=== PATIENT | female | born 1960 | race Caucasian/White ===

== ENCOUNTER → 2016-06-05 | Outpatient (CLI) | payer OTHER ==
[2016-06-05 13:28] LABS: BLOOD UREA NITROGEN 12 mg/dl (7-18); BUN/CREATININE RATIO 25.1 (10-20); CARBON DIOXIDE 29 mmol/L (21-32); CHLORIDE 103 mmol/L (98-107); CREATININE 0.49 mg/dl (0.60-1.20); GLUCOSE 100 mg/dl (70-99); POTASSIUM 3.7 mmol/L (3.5-5.1); SODIUM 140 mmol/L (136-145)
[2016-06-05 13:29] LABS: CALCIUM 9.6 mg/dl (8.5-10.1)
[2016-06-05 13:36] LABS: ESTIMATED AVERAGE GLUCOSE 114 mg/dl; HA1C FLAG Normal (Normal)
[2016-06-05 14:06] LABS: RATIO 38.8 mcg/mg (0-30.0)
== END | disposition home or self-care (01) ==
LOC: C.LABMFLN 09:33
PROVIDERS: ATTEND Family Medicine
DX: I10 Essential (primary) hypertension (principal); E55.9 Vitamin D deficiency, unspecified; E11.9 Type 2 diabetes mellitus without complications; E78.5 Hyperlipidemia, unspecified

== ENCOUNTER → 2016-09-18 | Outpatient (CLI) | payer OTHER ==
[2016-09-18 13:29] LABS: ESTIMATED AVERAGE GLUCOSE 111 mg/dl; HA1C FLAG Normal (Normal)
[2016-09-18 13:30] LABS: CREATININE RANDOM URINE < 13.0 mg/dl
[2016-09-18 13:44] LABS: ALT/SGPT 31 U/L (12-78); AST/SGOT 19 U/L (15-37); BLOOD UREA NITROGEN 16 mg/dl (7-18); BUN/CREATININE RATIO 31.6 (10-20); CALCIUM 9.1 mg/dl (8.5-10.1); CARBON DIOXIDE 27 mmol/L (21-32); CHLORIDE 104 mmol/L (98-107); CHOLESTEROL 151 mg/dl (0-200); GLUCOSE 92 mg/dl (70-99); POTASSIUM 3.7 mmol/L (3.5-5.1); SODIUM 136 mmol/L (136-145)
[2016-09-18 13:49] LABS: ALB/GLOB RATIO 1.1 (0.9-2); ALKALINE PHOSPHATASE 68 U/L (45-117); CHOLESTEROL/HDL RATIO 2.2; HDL CHOLESTEROL 69 mg/dl; LDL CHOLESTEROL CALCULATED 57 mg/dl; TRIGLYCERIDES 123 mg/dl (0-150); VERY LOW DENSITY LIPOPROT CALC 25 mg/dl
== END | disposition home or self-care (01) ==
LOC: C.LABMFLN 08:12
PROVIDERS: ATTEND Family Medicine
DX: E55.9 Vitamin D deficiency, unspecified (principal); R80.9 Proteinuria, unspecified; I10 Essential (primary) hypertension; E11.9 Type 2 diabetes mellitus without complications; E78.5 Hyperlipidemia, unspecified

== ENCOUNTER 2022-05-27 11:22 | Observation (INO) ==
--- NOTE | 2022-05-04 11:48 | PAT Medication Instructions ---
Medication Instructions Date of Service May 04, 2022 Home Medications Medication Instructions Recorded triamcinolone acetonide 0.1 % 1 applic topical BID PRN 11/22/20 topical cream dermatitis #80 grams potassium chloride 20 mEq 20 meq PO TID #270 tabs 03/28/21 tablet,extended release ketoconazole 2 % shampoo 1 applic topical .COMPLEX PRN 09/02/21 scalp irritation #120 mL ondansetron HCl 8 mg tablet 8 mg PO Q8H PRN nausea and 10/17/21 vomiting #20 tabs tizanidine 4 mg capsule 4 mg PO .QHS PRN muscle spasticity 10/17/21 #20 caps cholecalciferol (vitamin D3) 1,250 50,000 unit PO WEEKLY #14 caps 03/26/22 mcg (50,000 unit) capsule amlodipine 2.5 mg tablet 2.5 mg PO QAM #30 tabs 04/16/22 Medication List: coenzyme Q10 100 mg capsule 100 mg PO QPM cyanocobalamin (vitamin B-12) 1,500 mcg tablet,extended release 1,500 mcg PO QAM loratadine 10 mg tablet 10 mg PO QPM magnesium 250 mg tablet 250 mg PO BID nystatin 100,000 unit/gram topical cream 1 appln topical BID PRN Rash omega-3 acid ethyl esters 1 gram capsule 1 cap PO QAM vitamin B complex (Super B-50 Complex capsule) 1 cap PO QAM biotin 10 mg tablet 10 mg PO QAM glucosamine-chondroitin 250 mg-200 mg tablet (Osteo Bi-Flex) 1 tab PO QAM turmeric 400 mg capsule 400 mg PO BID triamcinolone acetonide 0.1 % topical cream 1 applic topical BID PRN dermatitis potassium chloride 20 mEq tablet,extended release 20 meq PO TID ketoconazole 2 % shampoo 1 applic topical .COMPLEX PRN scalp irritation ondansetron HCl 8 mg tablet 8 mg PO Q8H PRN nausea and vomiting tizanidine 4 mg capsule 4 mg PO .QHS PRN muscle spasticity cholecalciferol (vitamin D3) 1,250 mcg (50,000 unit) capsule 50,000 unit PO WEEKLY amlodipine 2.5 mg tablet 2.5 mg PO QAM ascorbic acid (vitamin C) 500 mg chewable tablet (Vitamin C) 500 mg PO QAM atenolol 50 mg-chlorthalidone 25 mg tablet 1 tab PO QPM cholecalciferol (vitamin D3) 50 mcg (2,000 unit) capsule 2,000 unit PO QAM duloxetine 30 mg capsule,delayed release 30 mg PO QPM losartan 100 mg tablet 100 mg PO QAM Continue as directed cholecalciferol (vitamin D3) 1,250 mcg (50,000 unit) capsule 50,000 unit PO WEEKLY (may not take AM of surgery) nystatin 100,000 unit/gram topical cream 1 appln topical BID PRN Rash (do not use AM of surgery) triamcinolone acetonide 0.1 % topical cream 1 applic topical BID PRN dermatitis (do not use AM of surgery) ketoconazole 2 % shampoo 1 applic topical .COMPLEX PRN scalp irritation (do not use AM of surgery) STOP taking 2 weeks before surgery biotin 10 mg tablet 10 mg PO QAM glucosamine-chondroitin 250 mg-200 mg tablet (Osteo Bi-Flex) 1 tab PO QAM turmeric 400 mg capsule 400 mg PO BID omega-3 acid ethyl esters 1 gram capsule 1 cap PO QAM coenzyme Q10 100 mg capsule 100 mg PO QPM DO NOT take the morning of surgery losartan 100 mg tablet 100 mg PO QAM cyanocobalamin (vitamin B-12) 1,500 mcg tablet,extended release 1,500 mcg PO QAM vitamin B complex (Super B-50 Complex capsule) 1 cap PO QAM cholecalciferol (vitamin D3) 50 mcg (2,000 unit) capsule 2,000 unit PO QAM ascorbic acid (vitamin C) 500 mg chewable tablet (Vitamin C) 500 mg PO QAM potassium chloride 20 mEq tablet,extended release 20 meq PO TID magnesium 250 mg tablet 250 mg PO BID Take morning of surgery With a small sip of water, OTHERWISE NOTHING TO EAT OR DRINK AFTER MIDNIGHT: amlodipine 2.5 mg tablet 2.5 mg PO QAM ondansetron HCl 8 mg tablet 8 mg PO Q8H PRN nausea and vomiting (if needed) Take evening before surgery loratadine 10 mg tablet 10 mg PO QPM atenolol 50 mg-chlorthalidone 25 mg tablet 1 tab PO QPM duloxetine 30 mg capsule,delayed release 30 mg PO QPM potassium chloride 20 mEq tablet,extended release 20 meq PO TID magnesium 250 mg tablet 250 mg PO BID tizanidine 4 mg capsule 4 mg PO .QHS PRN muscle spasticity (if needed) ondansetron HCl 8 mg tablet 8 mg PO Q8H PRN nausea and vomiting (if needed) Other Notes If you have any questions please call us at [phone] or [phone] or [phone] or [phone]
--- NOTE | 2022-05-07 10:28 | Anesthesiology Consultation ---
Date of Service May 07, 2022 Assessment & Plan (1) Encounter for pre-operative examination: - COVID screening: Per assessment on 05/07: No known COVID-19 positive contacts or current COVID-19 related symptoms. Travel screen negative. Patient vaccinated. At surgeon discretion if preop Covid testing being done. - Check BSG AM DOS - Outpatient joint assessment: Pt currently scheduled for inpatient pathway. If surgeon requests review for outpatient joint pathway, patient is not recommended candidate for outpatient joint program from anesthesia standpoint. Chart Review Chart Review: Acceptable Risk for Surgery and Patient NOT seen in Pre Admission Testing History Surgery Operation Date: 05/27/22 07:15 Proposed Procedures p Right Total Knee Arthroplasty - Tariq Eli MD Height/Weight Height: 5 ft 4 in Weight: 95.3 kg Allergies Allergy/AdvReac Type Severity Reaction Status Date / Time celecoxib [From Celebrex] Allergy Severe shortness Verified 05/04/22 10:50 of breath, edema diclofenac Allergy Severe shortness Verified 05/04/22 10:50 of breath; edema aspirin Allergy Intermediate "if I take Verified 05/04/22 10:50 too much aspirin my nose will bleed" butalbital [From Fiorinal] Allergy Intermediate Hives Verified 05/04/22 10:50 latex Allergy Intermediate dermatitis Verified 05/04/22 10:50 with latex gloves meloxicam Allergy Intermediate Tachycardia Verified 05/04/22 10:50 gabapentin Allergy Mild rash and Verified 05/04/22 10:50 brain fog sulfamethoxazole Allergy Unknown Unknown Verified 05/04/22 10:50 [From Bactrim] trimethoprim [From Bactrim] Allergy Unknown Unknown Verified 05/04/22 10:50 venlafaxine [From Effexor] Allergy Unknown Unknown Verified 05/04/22 10:50 fexofenadine [From Margarita] AdvReac Intermediate "made me Verified 05/04/22 10:50 real tired" Medications Home Medications Medication Instructions Recorded Confirmed Last Taken blood sugar diagnostic (OneTouch #10 ea 07/26/18 04/30/22 Unknown Ultra Blue Test Strip) coenzyme Q10 100 mg capsule 100 mg PO QPM 07/26/18 05/04/22 Unknown cyanocobalamin (vitamin B-12) 1,500 mcg PO QAM #30 tabs 07/26/18 05/04/22 Unknown 1,500 mcg tablet,extended release lancets (OneTouch UltraSoft #50 ea 07/26/18 04/30/22 Unknown Lancets) loratadine 10 mg tablet 10 mg PO QPM 07/26/18 05/04/22 Unknown magnesium 250 mg tablet 250 mg PO BID 07/26/18 05/04/22 Unknown nystatin 100,000 unit/gram topical 1 appln topical BID PRN Rash #1 g 07/26/18 05/04/22 Unknown cream omega-3 acid ethyl esters 1 gram 1 cap PO QAM 07/26/18 05/04/22 Unknown capsule vitamin B complex (Super B-50 1 cap PO QAM 07/26/18 05/04/22 Unknown Complex capsule) biotin 10 mg tablet 10 mg PO QAM 12/18/18 05/04/22 Unknown glucosamine-chondroitin 250 mg-200 1 tab PO QAM 04/22/20 05/04/22 Unknown mg tablet (Osteo Bi-Flex) turmeric 400 mg capsule 400 mg PO BID 04/22/20 05/04/22 Unknown triamcinolone acetonide 0.1 % 1 applic topical BID PRN 11/22/20 05/04/22 Unknown topical cream dermatitis #80 grams potassium chloride 20 mEq 20 meq PO TID #270 tabs 03/28/21 05/04/22 Unknown tablet,extended release ketoconazole 2 % shampoo 1 applic topical .COMPLEX PRN 09/02/21 05/04/22 Unknown scalp irritation #120 mL ondansetron HCl 8 mg tablet 8 mg PO Q8H PRN nausea and 10/17/21 05/04/22 Unknown vomiting #20 tabs tizanidine 4 mg capsule 4 mg PO .QHS PRN muscle spasticity 10/17/21 05/04/22 Unknown #20 caps cholecalciferol (vitamin D3) 1,250 50,000 unit PO WEEKLY #14 caps 03/26/22 05/04/22 Unknown mcg (50,000 unit) capsule amlodipine 2.5 mg tablet 2.5 mg PO QAM #30 tabs 04/16/22 05/04/22 Unknown ascorbic acid (vitamin C) 500 mg 500 mg PO QAM 05/04/22 05/04/22 Unknown chewable tablet (Vitamin C) atenolol 50 mg-chlorthalidone 25 1 tab PO QPM 05/04/22 05/04/22 Unknown mg tablet cholecalciferol (vitamin D3) 50 2,000 unit PO QAM 05/04/22 05/04/22 Unknown mcg (2,000 unit) capsule duloxetine 30 mg capsule,delayed 30 mg PO QPM 05/04/22 05/04/22 Unknown release losartan 100 mg tablet 100 mg PO QAM 05/04/22 05/04/22 Unknown Past Medical History Medical History Adjustment reaction Benign essential hypertension Cardiac murmur "No murmur" per PCP preop evaluation appt 04/30/22 ([facility]) Chronic anemia Chronic kidney disease Controlled diabetes mellitus with chronic kidney disease diet controlled Depression Fatty liver Hyperlipidemia Increased intraocular pressure Macromastia Moderate obstructive sleep apnea Previous CPAP use, no issues/no device since gastric bypass, no formal retest Obesity Osteoarthritis Exercise / Class Metabolic Activity II 4-5 Yardwork/Stairs/Walk up hill (one FS (no CP, no SOB)) Past Family History Family History Mother Coronary heart disease Dyslipidemia Renal cancer Thyroid disorder Family history of reaction to anesthesia nausea/vomiting Father Diabetes AAA (abdominal aortic aneurysm) Dyslipidemia Heart disease Myocardial infarction Lung cancer Aunt Breast cancer Denies family history of Ovarian cancer Prostate cancer Colorectal cancer Past Surgical History Surgical History H/O gastric bypass H/O wrist surgery bilateral carpal tunnel repair H/O: hysterectomy History of appendectomy History of breast biopsy right breast--benign History of colonoscopy History of laparoscopy excision gynecologic lesions History of left hip replacement Dr. Hoffman 12/12/21 History of tooth extraction S/P thyroid biopsy benign nodule S/P ureteral stent placement 07/01/20 - Dr. Celestina WILSON Status post laser lithotripsy of ureteral calculus 07/01/20 - Dr. Celestina ESQUIVEL Past Anesthesia History No Hx of Anesthesia Complications and No Family Hx of Anesthesia Complications (except mother with PONV) History of PONV No Hx of PONV and No Hx of Motion Sickness Social History Smoking Status: Former smoker Do You Dip or Chew Tobacco: No Smoking End Date: Quit 13yrs ago Hx Alcohol Use: Yes alcohol intake frequency: a few times a month Hx Substance Use: No Review of Systems Patient denies chest pain, shortness of breath, dyspnea on exertion, fever, chills, cough, wheezing, palpitations. Physical Exam Vital Signs VITALS BP 134/79 P 87 TEMP 98.1 SP02 97%RA RESP 16 PHYSICAL Full cervical extension range of motion. Full TMJ range of motion. TMD 3 finger breaths Mallampati Score 1 Dentition: full denture on top, several missing lower (molars) Lungs: clear throughout to auscultation Cardiac: regular rate and rhythm, no murmurs noted Spine: normal Carotid arteries: negative bruit Extremities: no edema Lab Results Anesthesia Preop Results Results Anesthesia Widget: WBC 6.42 K/ul (4.8-10.8) 04/16/22 Hgb 13.2 g/dl (12.0-16.0) 04/16/22 Hct 38.9 % (37.0-47.0) 04/16/22 Plt 287 K/uL (130-400) 04/16/22 Na 139 mmol/L (136-145) 04/16/22 K 4.0 mmol/L (3.5-5.1) 04/16/22 Cl 106 mmol/L (98-107) 04/16/22 CO2 25 mmol/L (21-32) 04/16/22 BUN 18 mg/dl (6-23) 04/16/22 Creat 0.52 mg/dl (0.6-1.2) L 04/16/22 Glucose Level 102 mg/dl (70-99(Fasting)) H 04/16/22 PT 10.4 Seconds (9.0-12.0) 05/07/22 PTT 24.5 Seconds (21.0-31.0) 05/07/22 INR 1.0 (0.9-1.1) 05/07/22 HA1c 4.9 % (4.5-5.6) 04/16/22 Urine Color Yellow 05/07/22 Urine Appearance Clear (Clear) 05/07/22 Urine pH 5.5 (4.5-7.5) 05/07/22 Urine Specific [place] 1.023 (1.000-1.030) 05/07/22 Urine Protein Negative (Negative) 05/07/22 Urine Glucose (UA) Negative (Negative) 05/07/22 Urine Ketones Negative (Negative) 05/07/22 Urine Blood Negative (Negative) 05/07/22 Urine Nitrite Negative (Negative) 05/07/22 Urine Bilirubin Negative (Negative) 05/07/22 Urine Urobilinogen Negative (Negative) 05/07/22 Urine Leukocyte Esterase Negative (Negative) 05/07/22 Blood Type A Positive 05/07/22 Antibody Screen NEGATIVE 05/07/22 Testing Electrocardiogram Date: 09/24/21 SR with PACs at 70bpm. NS STA. Chest X-Ray Date: 09/24/21 FINDINGS: Frontal and lateral radiographs of the chest demonstrate the cardiomediastinal silhouette to be within normal limits. The lungs are clear of alveolar opacities. There is no evidence for effusion bilaterally. There is no evidence for vascular congestion. There is no acute osseous pathology. IMPRESSION: No acute cardiopulmonary disease. COVID-19 Risk Screen Screening Information COVID-19 Screen Date: 05/07/22 Exposure 21 Days Family/Household +COVID Last 21 Days: No Exposure 10 Days Any COVID Exposure Last 10 Days: No Symptoms Last 10 Days Experienced COVID Sx Last 10 Days: No + COVID 0-90 Days COVID + in Last 0-90 Days: No
--- NOTE | 2022-05-26 10:19 | History & Physical Report ---
Date of Service May 26, 2022 Assessment & Plan (1) Primary osteoarthritis of right knee: Plan: Treatment options discussed with the patient. She has failed conservative measures. Risks, benefits and alternatives to surgery including but not limited to infection, DVT, pain, stiffness, need for revision surgery, damage to blood vessels, damage to nerves, PE, , were discussed with the patient and they wish to proceed. Plan on right total knee arthroplasty scheduled for [facility] with Dr. Eli on 05/27/22. Plan on home health physical therapy. Plan on aspirin 81mg twice daily for 1 mo post op for DVT prophylaxis. Plan on tramadol post op for pain management. All questions answered. F/u post op. History of Present Illness Chief Complaint: Right knee pain Primary Care Provider: Joseph Marie MD 62yo female with PMHx signficant for HTN, anxiety, DM2 presents with ongoing right knee pain. She has pain interfering with her daily activity. She has failed conservative measures and would like to proceed with surgical intervention. Patient denies headaches, sweats, fevers, chills, double vision, blurred vision, cough, sore throat, dysphagia, chest pain, sob, wheezing, n/v/d/c, numbness, tingling, fatigue, urinary symptoms, mood disorders. ROS positive for right knee pain and stiffness. Allergies Allergy/AdvReac Type Severity Reaction Status Date / Time celecoxib [From Celebrex] Allergy Severe shortness Verified 05/04/22 10:50 of breath, edema diclofenac Allergy Severe shortness Verified 05/04/22 10:50 of breath; edema aspirin Allergy Intermediate "if I take Verified 05/04/22 10:50 too much aspirin my nose will bleed" butalbital [From Fiorinal] Allergy Intermediate Hives Verified 05/04/22 10:50 latex Allergy Intermediate dermatitis Verified 05/04/22 10:50 with latex gloves meloxicam Allergy Intermediate Tachycardia Verified 05/04/22 10:50 gabapentin Allergy Mild rash and Verified 05/04/22 10:50 brain fog sulfamethoxazole Allergy Unknown Unknown Verified 05/04/22 10:50 [From Bactrim] trimethoprim [From Bactrim] Allergy Unknown Unknown Verified 05/04/22 10:50 venlafaxine [From Effexor] Allergy Unknown Unknown Verified 05/04/22 10:50 fexofenadine [From Margarita] AdvReac Intermediate "made me Verified 05/04/22 10:50 real tired" Home Medications Medication Instructions Recorded Confirmed Type blood sugar diagnostic (OneTouch #10 ea 07/26/18 04/30/22 History Ultra Blue Test Strip) coenzyme Q10 100 mg capsule 100 mg PO QPM 07/26/18 05/04/22 History cyanocobalamin (vitamin B-12) 1,500 mcg PO QAM #30 tabs 07/26/18 05/04/22 History 1,500 mcg tablet,extended release lancets (OneTouch UltraSoft #50 ea 07/26/18 04/30/22 History Lancets) loratadine 10 mg tablet 10 mg PO QPM 07/26/18 05/04/22 History magnesium 250 mg tablet 250 mg PO BID 07/26/18 05/04/22 History nystatin 100,000 unit/gram topical 1 appln topical BID PRN Rash #1 g 07/26/18 05/04/22 History cream omega-3 acid ethyl esters 1 gram 1 cap PO QAM 07/26/18 05/04/22 History capsule vitamin B complex (Super B-50 1 cap PO QAM 07/26/18 05/04/22 History Complex capsule) biotin 10 mg tablet 10 mg PO QAM 12/18/18 05/04/22 History glucosamine-chondroitin 250 mg-200 1 tab PO QAM 04/22/20 05/04/22 History mg tablet (Osteo Bi-Flex) turmeric 400 mg capsule 400 mg PO BID 04/22/20 05/04/22 History triamcinolone acetonide 0.1 % 1 applic topical BID PRN 11/22/20 05/04/22 Rx topical cream dermatitis #80 grams potassium chloride 20 mEq 20 meq PO TID #270 tabs 03/28/21 05/04/22 Rx tablet,extended release ketoconazole 2 % shampoo 1 applic topical .COMPLEX PRN 09/02/21 05/04/22 Rx scalp irritation #120 mL ondansetron HCl 8 mg tablet 8 mg PO Q8H PRN nausea and 10/17/21 05/04/22 Rx vomiting #20 tabs tizanidine 4 mg capsule 4 mg PO .QHS PRN muscle spasticity 10/17/21 05/04/22 Rx #20 caps cholecalciferol (vitamin D3) 1,250 50,000 unit PO WEEKLY #14 caps 03/26/22 05/04/22 Rx mcg (50,000 unit) capsule amlodipine 2.5 mg tablet 2.5 mg PO QAM #30 tabs 04/16/22 05/04/22 Rx ascorbic acid (vitamin C) 500 mg 500 mg PO QAM 05/04/22 05/04/22 History chewable tablet (Vitamin C) atenolol 50 mg-chlorthalidone 25 1 tab PO QPM 05/04/22 05/04/22 History mg tablet cholecalciferol (vitamin D3) 50 2,000 unit PO QAM 05/04/22 05/04/22 History mcg (2,000 unit) capsule duloxetine 30 mg capsule,delayed 30 mg PO QPM 05/04/22 05/04/22 History release losartan 100 mg tablet 100 mg PO QAM 05/04/22 05/04/22 History Past Med/Surg History Medical History Adjustment reaction Benign essential hypertension Cardiac murmur "No murmur" per PCP preop evaluation appt 04/30/22 ([facility]) Chronic anemia Chronic kidney disease Controlled diabetes mellitus with chronic kidney disease diet controlled Depression Fatty liver Hyperlipidemia Increased intraocular pressure Macromastia Moderate obstructive sleep apnea Previous CPAP use, no issues/no device since gastric bypass, no formal retest Obesity Osteoarthritis Surgical History H/O gastric bypass H/O wrist surgery bilateral carpal tunnel repair H/O: hysterectomy History of appendectomy History of breast biopsy right breast--benign History of colonoscopy History of laparoscopy excision gynecologic lesions History of left hip replacement Dr. Hoffman 12/12/21 History of tooth extraction S/P thyroid biopsy benign nodule S/P ureteral stent placement 07/01/20 - Dr. Celestina WILSON Status post laser lithotripsy of ureteral calculus 07/01/20 - Dr. Celestina WILSON Family History Mother Coronary heart disease Dyslipidemia Renal cancer Thyroid disorder Family history of reaction to anesthesia nausea/vomiting Father Diabetes AAA (abdominal aortic aneurysm) Dyslipidemia Heart disease Myocardial infarction Lung cancer Aunt Breast cancer Denies family history of Ovarian cancer Prostate cancer Colorectal cancer Social History Smoking Status: Former smoker Smoking End Date: Quit 13yrs ago; Second Hand Exposure: No; Do You Dip or Chew Tobacco: No; Tobacco Cessation Education Requested by Patient: No Hx Alcohol Use: Yes Hx Substance Use: No Preferred Language: Gabonese Communication Ability: Effective Visual Impairment: No Limitations Hearing Ability: Normal Sub Prior Required: No Beliefs That Will Affect Care: None marital status: Current Living Situation: Spouse current occupational status: employed current occupation: [employer] Other Information That Helps Us Care for You: No Feels Safe at Home: Yes Safety Concerns: Feels Safe At This Time Childhood Exposure to Second-Hand Smoke: Yes caffeine: Yes during the past year weight has: remained stable Dental Care, Regularly: No Physical Activity Frequency: Daily Seatbelt Use: always Sunscreen Use: Yes Assistive Devices: Denture - Upper and Glasses Review of Systems All systems reviewed & are unremarkable except as noted in HPI & below Physical Exam Constitutional: well developed and well nourished; no acute distress Eyes: PERRL, conjunctivae normal, anicteric sclerae ENMT: external ear and nose normal, oropharynx normal Neck: trachea midline, no thyromegaly Respiratory: normal respiratory effort, lungs clear to auscultation Cardiovascular: RRR, no murmur, no edema Musculoskeletal: Right knee: Mild effusion. Medial joint line and patellar tenderness. Moderate crepitation. Painful ROM. ROM 0-120 degrees. Stable to valgus and varus stress Skin: no rashes, warm and dry Neurologic: patellar DTR's 2+ bilat, sensation intact Psychiatric: A+Ox3, euthymic affect Results & Data Diagnostic Findings Right knee radiographs: Moderate joint space narrowing medial compartment, not [id number]. Arthritic changes PF compartment. MRI available which demonstrates complex tear posterior horn medial meniscus with a radial component that appears to extend towards the meniscus root. MRI read is also having a lateral meniscal root detachment. She is bone on bone PF compartment.
[~2022-05-27 11:22] MED LIST: ACETAMINOPHEN 500 MG TAB PO SCH; FAMOTIDINE 20 MG TAB PO SCH; LR 500ML BOLUS, THEN 15ML/HR IV SCH; METOCLOPRAMIDE HCL 10 MG TABLET PO SCH; TRANEXAMIC ACID 1,000 MG **IV Intra-op IV SCH; TRANEXAMIC ACID 1,000 MG **IV Pre-op IV SCH; [UNRECOGNIZED DRUG - REMARK] SCH; ceFAZolin 2000MG 2,000 MG/15 ML SYR IV SCH
--- NOTE | 2022-05-27 12:33 | History & Physical Bridge Note ---
Date of Service May 27, 2022 History & Physical Bridge Note I have examined the patient, reviewed the History & Physical and in the interval since the performance of the History & Physical I have noted the following changes of clinical significance: no changes noted
[2022-05-27] MEDS ORDERED: fentaNYL citrate PF 100 MCG/2 ML VIAL ONE ×2 (13:45→18:29)
[2022-05-27] MEDS ORDERED: MIDAZOLAM HCL 1 MG/ML 2ML VIAL ONE (13:45)
[2022-05-27] MEDS ORDERED: LIDOCAINE 2% MPF LOCAL 5 ML VIAL ONE (13:45)
[2022-05-27] MEDS ORDERED: PROPOFOL IV EMULSION 10 MG/ML 20 ML VIAL IV ONE ×2 (13:45→13:48)
[2022-05-27] MEDS ORDERED: BUPIVACAINE 0.5 % 5 MG/1 ML PF 10ML VIAL ONE (14:07)
[2022-05-27] MEDS ORDERED: ROPIVACAINE 0.5% 5 MG/ML 30 ML VIAL ONE (14:07)
[2022-05-27] MEDS ORDERED: ROCURONIUM BROMIDE 10 MG/ML 5 ML VIAL IV ONE (15:45)
[2022-05-27] MEDS ORDERED: DEXAMETHASONE SOD INJ 4 MG/ML VIAL ONE (15:45)
[2022-05-27] MEDS ORDERED: ONDANSETRON INJ 2 MG/ML 2 ML VIAL ONE (15:45)
[2022-05-27] MEDS ORDERED: KETAMINE 50 MG/5 ML SYRINGE ONE (15:47)
[2022-05-27] MEDS ORDERED: ORTHO JOINT ANESTHETIC ONE (16:22)
[2022-05-27] MEDS ORDERED: ROPIVACAINE 0.5% HCL/PF 150 MG, BUPIVACAINE 0.75% MPF 20 ML, EPINEPHrine 30MG/30ML (OR ... INFIL SCH (17:00)
[2022-05-27] MEDS ORDERED: GLYCOPYRROLATE 0.2 MG/ML VIAL ONE (17:40)
[2022-05-27] MEDS ORDERED: NEOSTIGMINE METHYLSULFATE 1 MG/ML 10ML VIAL ONE (17:40)
--- NOTE | 2022-05-27 17:46 | Operative Report ---
Post Operative Report Pre & Post Diagnosis Operation Date: 05/27/22 14:20 Pre-Op Diagnosis: Osteoarthritis Knee Right medial compartment and patellofemoral joint with medial meniscus tear with root detachment Post-Op Diagnosis: Osteoarthritis Knee Right tricompartmental with medial meniscus tear radial tear with root detachment and several loose bodies. I identified the patient and participated in the time-out.: Yes Procedure Operation Date: 05/27/22 14:20 Actual Procedures p Right Total Knee Arthroplasty(Right), wander and Acticoat superficial wound VAC.- Tariq Eli MD Surgeon Tariq Eli MD Glycerine Plant Operator Jag GÓMEZ Estimated Blood Loss 5 Findings Consistent with Post-Op Diagnosis Specimens Bone cuts Drains 2 Hemovac Anesthesia Type General Regional Complications none Disposition Disposition: Recovery Room Indications 62-year-old female with chronic right knee pain failed conservative management. Radiographs demonstrate some patellofemoral malalignment with grade 3 patellofemoral OA and grade 3 medial compartment OA close to being [id number] however MRI demonstrates grade 4 OA in these areas and tricompartmental OA with radial tear essentially detaching the root of posterior horn medial meniscus. Description of Procedure The patient was taken to the operating room and anesthetized under regional block and general anesthesia. Patient was placed supine on the the operating table. A pneumatic tourniquet was placed about the right moderately obese upper thigh. The knee exam demonstrated 15 degree flexion contracture further flexion to 130 degrees with no instability. The involved leg was elevated exsanguinated with Esmarch bandage and the pneumatic tourniquet was raised to 325 millimeters mercury. A longitudinal incision was made across the anterior knee. Skin flaps were elevated. An incision was made into the medial retinaculum and extended up into the mid third of the quadriceps tendon and extended down to the tibial tubercle. Intra-articular findings demonstrated tricompartmental osteoarthritis grade 4 articular thinning in the lateral femoral condyle there was grade 4 wear on the entire medial femoral condyle there was grade 2-3 changes on the tibia and grade 4 trochlear disease grade 4 patella osteoarthritis. There were several loose bodies and there were tricompartmental osteophytes. The knee was exposed by excising cruciate ligaments and menisci. The infrapatellar fat pad was resected. All loose bodies were resected. The fat pad over the anterior femur at the upper aspect of the articular surface was resected for placement of the component in that area. A subperiosteal peel lateral release was performed around the patella. There was a calcification in the lateral retinaculum adjacent to the patella that was resected. The [employer] journey 2.0 posterior stabilized total knee arthroplasty system was utilized for the procedure. The custom femoral cutting guide was pinned in position. The distal femoral cut was made. The size 3, 5 in 1 cutting block was placed. The anterior posterior and chamfer cuts were made. The knee was extended and a free hand cut technique was performed to the patella. The patella with was measured and the width was reproduced using a 32 symmetrical patella component. 3 drill holes are made for the patella component pegs. The tibia was then subluxed. The custom tibial cutting block was pinned in position and the proximal tibial cut was made with the oscillating saw. The size 2 tibial trial was externally rotated in line with the tibial tubercle and pinned in position. The punch for the stem was used. The femoral trial was inserted and centered the notch cutting devices were used and the collet was placed. Tibial trials were used for the insert. The size 10 trial gave balanced ligaments through full range of motion. Patella tracking was assessed with range of motion. The patella tracked centrally. The trials were removed. The Orthomix anesthetic cocktail leaving the Toradol out as a precaution due to other NSAID allergies was then injected per protocol. The cut bone surfaces and soft tissue were copiously irrigated with pulsatile lavage saline solution. The final components were cemented with Refobacin cement. The final components were [employer] journey 2.0 size 3 right posterior stabilized femoral component, 2 right tibial component, 10 mm right posterior stabilized tibial polyethylene and a 32 symmetrical patella polyethylene. After the cement cured, the Betadine soak was used for 3 minutes. The knee was then copiously irrigated with pulsatile lavage saline solution. 2 drains were brought out laterally connected to Hemovac. The quadriceps tendon and medial retinaculum were closed with interrupted [id number] #1 Vicryl sutures. The knee was taken through full range of motion and repair was secure. Knee range of motion was 0 through 130 degrees. the subcutaneous tissues were closed with 2-0 Vicryl sutures. The skin was closed with linda. A wander and Acticoat superficial wound VAC was applied. The tourniquet was let down and the patient had good capillary refill to the extremity. The patient tolerated the procedure well. My physician registrar assistant Jag GÓMEZ participated as first mate and was integral part in all aspects of the procedure including prepping, draping, leg positioning, soft tissue retraction, instrument management and assisted in the closure , wound VAC application and will participate in postoperative care the patient. I attest to the content of the Intraoperative Record and any orders documented therein. Any exceptions are noted below.
--- NOTE | 2022-05-27 18:22 | XRay Report ---
TWO VIEWS RIGHT KNEE CLINICAL HISTORY: Postoperative examination. FINDINGS: AP and crosstable lateral portable views of the right knee are obtained. A right knee arthr oplasty is in near anatomic alignment. There has been undersurface remodeling of the patella. No acut e fracture is seen. There are expected postoperative changes around the knee including skin clips, a surgical drain, soft tissue edema, and subcutaneous gas. IMPRESSION: Expected postoperative changes status post right knee arthroplasty. No acute fracture is seen. ACT 112: Negative or not required by law. Electronically signed by: Joseph Mccarthy M.D. 05/27/2022 6:20 PM
[2022-05-27] MEDS ORDERED: ATROPINE SULFATE 0.1 MG/ML 10ML SYR IV PRN (18:27)
[2022-05-27] MEDS ORDERED: ONDANSETRON INJ 2 MG/ML 2 ML VIAL IV PRN (18:27)
[2022-05-27] MEDS ORDERED: ePHEDrine sulfate 50 MG/ML AMP IV PRN (18:27)
[2022-05-27] MEDS: fentaNYL citrate PF 100 MCG/2 ML VIAL IV PRN ×2 (18:29→18:37)
--- NOTE | 2022-05-27 18:33 | Anesthesiology Progress Note ---
Date of Service May 27, 2022 Anesthesia Post Procedure Vital Signs Vital Signs: Temp Pulse Pulse Resp BP Pulse Ox O2 Del Method 05/27/22 18:00 36.2 C L 70 20 116/53 L 95 Nasal Cannula 05/27/22 12:22 36.8 C 103 H 18 143/74 H 96 Room Air O2 Flow Rate 05/27/22 18:00 2 05/27/22 12:22 Pain Intensity Right Knee: Pain Intensity: 5 Transfer of Care Handoff Completed per policy Notes Mental Status: alert / awake / arousable Patient Amnestic to Procedure: Yes Nausea / Vomiting: adequately controlled Pain: adequately controlled Airway Patency, RR, SpO2: stable & adequate BP & HR: stable & adequate and see Notes below Hydration State: stable & adequate Anesthetic Complications: no major complications apparent Notes: Patient was in an irregularly irregular rhythm throughout case, HR 70-90. Unable to discern from rhythm strip if Afib vs AFlutt vs frequent PACs. There was no difficulty maintaining normal rate or BP. In PACU, 12 lead showed clear AFlutter with controlled ventricular rate. The patient denies a history of afib, aflutter, or other arrythmias and denies dyspnea or chest pain. She is not a good candidate for systemic anticoagulation given the proximity to surgery. However, I am concerned that she could develop an uncontrolled ventricular rate so we will monitor her on med-telemetry overnight and consult cardiology. Dr Eli is in agreement with this plan.
[2022-05-27] MEDS ORDERED: tiZANidine HCL 4 MG TABLET PO PRN (20:12)
[2022-05-27] MEDS ORDERED: NON-FORMULARY MEDICATION (Coenzyme Q10 100 mg capsule) PO SCH (21:00)
--- NOTE | 2022-05-27 21:41 | Hospitalist Consultation ---
Date of Consultation May 27, 2022 Assessment & Plan (1) Primary osteoarthritis of right knee: 62-year-old woman with history of hypertension, GERD, depression and primary osteoarthritis of right knee now s/p right TKA. Admitted for medical supervision following newly discovered atrial fibrillation. Primary osteoarthritis of right knee -Now s/p right TKA. Resting comfortably. * Tylenol 1000 mg p.o. every 8 hours as needed for pain * P.o. oxycodone as needed for uncontrolled pain. * Advance diet as tolerated * CBC, BMP in the a.m. * Deferring anticoagulation until the morning (see below) * OOB to chair with assistance, weightbearing as tolerated Atrial fibrillation -Newly discovered postprocedure. -No prior history of arrhythmia. No evidence of arrhythmia during TKA procedure, per operative report, charted vitals. -Patient is not on any anticoagulation. -Discussed anticoagulation with on-call consumer marketing analyst. Recommended initiation of low-dose IV heparin without bolus (with orthopedics' blessing). -Discussed anticoagulation with on-call [facility] surgeon, who recommended deferring initiation to the a.m. * Echocardiogram ordered to be performed in the a.m. * IV heparin without bolus to start in the a.m. orthopedic surgery may adjust as preferred. * Trend vitals. Chronic conditions: Continue home meds. (2) Atrial fibrillation with normal ventricular rate: Supervising Physician Co-Signing Physician Notes Attending addendum: I have physically seen this patient, have supervised the medical residents activities, and agree with the H&P unless as otherwise noted. Assessment and Plan: Status post right TKA- Seen postoperatively, and is medically stable Pain management per primary surgical team Atrial fibrillation/hypertension- New diagnosis of atrial fibrillation postoperatively Cardiology recommendation of heparin drip IV low-dose without bolus will be deferred until a.m. per surgical recommendation Monitor on telemetry, order echocardiogram for a.m Continue amlodipine with hold parameters Continue losartan as long as creatinine okay in the morning We will follow along during hospital stay History of Present Illness Attending Physician: Tariq Eli MD History of Present Illness Duncan is a 62-year-old woman who is s/p right total knee arthroplasty. She was discovered to have an irregular heart rhythm without RVR and hospitalist was consulted for medical evaluation. She has not been diagnosed with atrial fibrillation previously. At bedside, patient is seated upright and resting comfortably. She reports having episodes of "palpitations" in the past, but thought this was because of her anxiety. She denies ever having episode of angina or dizziness. She denies dizziness, chest pain, shortness of breath, or palpitations. She reports 8/10 postsurgical pain at present. Allergies Allergy/AdvReac Type Severity Reaction Status Date / Time celecoxib [From Celebrex] Allergy Severe shortness Verified 05/27/22 12:10 of breath, edema diclofenac Allergy Severe shortness Verified 05/27/22 12:10 of breath; edema aspirin Allergy Intermediate "if I take Verified 05/27/22 12:10 too much aspirin my nose will bleed" butalbital [From Fiorinal] Allergy Intermediate Hives Verified 05/27/22 12:10 latex Allergy Intermediate dermatitis Verified 05/27/22 12:10 with latex gloves meloxicam Allergy Intermediate Tachycardia Verified 05/27/22 12:10 gabapentin Allergy Mild rash and Verified 05/27/22 12:10 brain fog sulfamethoxazole Allergy Unknown Unknown Verified 05/27/22 12:10 [From Bactrim] trimethoprim [From Bactrim] Allergy Unknown Unknown Verified 05/27/22 12:10 venlafaxine [From Effexor] Allergy Unknown Unknown Verified 05/27/22 12:10 fexofenadine [From Margarita] AdvReac Intermediate "made me Verified 05/27/22 12:10 real tired" Home Medications Medication Instructions Recorded Confirmed Type blood sugar diagnostic (OneTouch #10 ea 07/26/18 04/30/22 History Ultra Blue Test Strip) coenzyme Q10 100 mg capsule 100 mg PO QPM 07/26/18 05/27/22 History cyanocobalamin (vitamin B-12) 1,500 mcg PO QAM #30 tabs 07/26/18 05/27/22 History 1,500 mcg tablet,extended release lancets (OneTouch UltraSoft #50 ea 07/26/18 04/30/22 History Lancets) loratadine 10 mg tablet 10 mg PO QPM 07/26/18 05/27/22 History magnesium 250 mg tablet 250 mg PO BID 07/26/18 05/27/22 History nystatin 100,000 unit/gram topical 1 appln topical BID PRN Rash #1 g 07/26/18 05/27/22 History cream omega-3 acid ethyl esters 1 gram 1 cap PO QAM 07/26/18 05/27/22 History capsule vitamin B complex (Super B-50 1 cap PO QAM 07/26/18 05/27/22 History Complex capsule) biotin 10 mg tablet 10 mg PO QAM 12/18/18 05/27/22 History glucosamine-chondroitin 250 mg-200 1 tab PO QAM 04/22/20 05/27/22 History mg tablet (Osteo Bi-Flex) turmeric 400 mg capsule 400 mg PO BID 04/22/20 05/27/22 History triamcinolone acetonide 0.1 % 1 applic topical BID PRN 11/22/20 05/27/22 Rx topical cream dermatitis #80 grams potassium chloride 20 mEq 20 meq PO TID #270 tabs 03/28/21 05/27/22 Rx tablet,extended release ketoconazole 2 % shampoo 1 applic topical .COMPLEX PRN 09/02/21 05/27/22 Rx scalp irritation #120 mL ondansetron HCl 8 mg tablet 8 mg PO Q8H PRN nausea and 10/17/21 05/27/22 Rx vomiting #20 tabs tizanidine 4 mg capsule 4 mg PO .QHS PRN muscle spasticity 10/17/21 05/27/22 Rx #20 caps cholecalciferol (vitamin D3) 1,250 50,000 unit PO WEEKLY #14 caps 03/26/22 05/27/22 Rx mcg (50,000 unit) capsule amlodipine 2.5 mg tablet 2.5 mg PO QAM #30 tabs 04/16/22 05/27/22 Rx ascorbic acid (vitamin C) 500 mg 500 mg PO QAM 05/04/22 05/27/22 History chewable tablet (Vitamin C) atenolol 50 mg-chlorthalidone 25 1 tab PO QPM 05/04/22 05/27/22 History mg tablet cholecalciferol (vitamin D3) 50 2,000 unit PO QAM 05/04/22 05/27/22 History mcg (2,000 unit) capsule duloxetine 30 mg capsule,delayed 30 mg PO QPM 05/04/22 05/27/22 History release losartan 100 mg tablet 100 mg PO QAM 05/04/22 05/27/22 History acetaminophen 500 mg tablet 1,000 mg PO Q8H PRN fever or pain 05/29/22 Rx (Tylenol Extra Strength) 14 days #84 tabs apixaban 5 mg tablet (Eliquis) 5 mg PO BID #60 tabs 05/29/22 Rx oxycodone 5 mg tablet 5 mg PO Q4H PRN pain #30 tabs 05/29/22 Rx polyethylene glycol 3350 17 gram 17 g PO DAILY PRN constipation #5 05/29/22 Rx oral powder packet (Miralax) ea Patient History Medical History Adjustment reaction Atrial flutter Benign essential hypertension Cardiac murmur "No murmur" per PCP preop evaluation appt 04/30/22 ([facility]) Chronic anemia Chronic kidney disease Controlled diabetes mellitus with chronic kidney disease diet controlled Depression Fatty liver Hyperlipidemia Increased intraocular pressure Macromastia Moderate obstructive sleep apnea Previous CPAP use, no issues/no device since gastric bypass, no formal retest Obesity Osteoarthritis Surgical History H/O gastric bypass H/O wrist surgery bilateral carpal tunnel repair H/O: hysterectomy History of appendectomy History of breast biopsy right breast--benign History of colonoscopy History of laparoscopy excision gynecologic lesions History of left hip replacement Dr. Hoffman 12/12/21 History of tooth extraction S/P thyroid biopsy benign nodule S/P ureteral stent placement 07/01/20 - Dr. Celestina WILSON Status post laser lithotripsy of ureteral calculus 07/01/20 - Dr. Celestina WILSON Family History Mother Coronary heart disease Dyslipidemia Renal cancer Thyroid disorder Family history of reaction to anesthesia nausea/vomiting Father Diabetes AAA (abdominal aortic aneurysm) Dyslipidemia Heart disease Myocardial infarction Lung cancer Aunt Breast cancer Denies family history of Ovarian cancer Prostate cancer Colorectal cancer Social History Smoking Status: Never smoker Second Hand Exposure: No; Hx Alcohol Use: No Hx Substance Use: No Preferred Language: Turkmen Communication Ability: Effective Visual Impairment: No Limitations Hearing Ability: Normal Timber Poisoner Required: No Beliefs That Will Affect Care: None marital status: Current Living Situation: Spouse Current Living Situation Comment: in a trailer current occupational status: employed current occupation: [employer] Feels Safe at Home: Yes Childhood Exposure to Second-Hand Smoke: Yes caffeine: Yes during the past year weight has: remained stable Dental Care, Regularly: No Physical Activity Frequency: Daily Seatbelt Use: always Sunscreen Use: Yes Assistive Devices: Cane, Raised Toilet Seat and Walker Review of Systems Review of Systems: All systems reviewed & are unremarkable except as noted in HPI & below Physical Exam Physical Exam: General: No acute distress HEENT: PERRLA. Normal conjunctiva, anicteric sclera. Oropharynx normal. Respiratory: Normal respiratory effort, CTABL. Cardiovascular: Regular rate. Irregular rhythm. No murmurs, gallops, or rubs. No pedal edema. GI: Soft abdomen with normal bowel sounds heard on auscultation. Nontender x4 quadrants Neuro: Alert and oriented x3. MSK: Mild swelling noted at the right knee without surrounding bleeding or hematoma. Results & Data Results & Data Vital Signs (Past 12 Hours) Vital Signs Temp Pulse Pulse Resp BP Pulse Ox O2 Del Method 05/27/22 21:00 36.7 C 88 18 137/70 98 Nasal Cannula 05/27/22 19:45 72 17 122/62 98 Nasal Cannula 05/27/22 19:30 70 15 124/65 97 Nasal Cannula 05/27/22 19:15 69 18 120/61 96 Nasal Cannula 05/27/22 19:00 36.6 C 78 21 140/69 96 Nasal Cannula 05/27/22 18:30 69 15 128/75 98 Nasal Cannula 05/27/22 18:20 68 17 136/76 98 Nasal Cannula 05/27/22 18:50 73 16 137/57 L 96 Nasal Cannula 05/27/22 18:40 90 17 132/84 97 Nasal Cannula 05/27/22 18:10 69 19 134/71 97 Nasal Cannula 05/27/22 18:00 36.2 C L 70 20 116/53 L 95 Nasal Cannula 05/27/22 12:22 36.8 C 103 H 18 143/74 H 96 Room Air O2 Flow Rate 05/27/22 21:00 3 05/27/22 19:45 2 05/27/22 19:30 2 05/27/22 19:15 2 05/27/22 19:00 2 04/12/23 18:30 2 05/27/22 18:20 2 05/27/22 18:50 2 05/27/22 18:40 2 05/27/22 18:10 2 05/27/22 18:00 2 05/27/22 12:22 Resident Activity Tracking Resident Involvement: Resident Care Provided and Supervisor Fabrication Coverage Note Care Provided: Adult Hospital Medicine
[2022-05-27] MEDS: DULoxetine HCL 30 MG CAP PO SCH (22:22)
[2022-05-27] MEDS: POTASSIUM CHLORIDE CRTAB 20 MEQ TABCR PO SCH (22:22)
[2022-05-27] MEDS: MAGNESIUM OXIDE 400 MG TAB PO SCH (22:22)
[2022-05-27] MEDS: CHLORTHALIDONE 25 MG TAB PO SCH (22:23)
[2022-05-27] MEDS: LORATADINE 10 MG TAB PO SCH (22:23)
[2022-05-27] MEDS: ATENOLOL 50 MG TABLET PO SCH (22:23)
[2022-05-27] MEDS: ACETAMINOPHEN 500 MG TAB PO PRN (23:19)
[2022-05-28] MEDS: ACETAMINOPHEN 500 MG TAB PO PRN (05:30)
--- NOTE | 2022-05-28 07:13 | Orthopedic Progress Note ---
Date of Service May 28, 2022 Assessment & Plan (1) Primary osteoarthritis of right knee: Plan: Postop day 1 status post right total knee arthroplasty. Postoperative atrial fibrillation. Appreciate medicine service input. Cardiology has been consulted. Plans from our standpoint was to start her on Eliquis 2.5 mg p.o. twice daily for DVT prophylaxis. However, in the interim, medicine service is discussing using IV heparin starting at 9 AM this morning. We will try to confer with them to discuss further plans for DVT prophylaxis. PT/OT protocols. Weightbearing as tolerated. DVT prophylaxis-as noted above, SCDs, MICHAEL magallon. Pain management-as written. DC planning-patient is considering home health services at this time. Case management to see her this morning. Admission and Anticipated Discharge Date Admission Date: May 27, 2022 Subjective Postop day 1 Patient sitting up in bed awake and alert. No complaints this morning. Pain is controlled. Denies shortness of breath, chest pain, lightheadedness. She states that she has not had any feelings of her heart beating out of her chest and has not felt any type of arrhythmia. She states that she has had this in the past but attributed it to anxiety. It is never truly been documented that she has had atrial fibrillation in the past. She states that she had worn a Holter monitor at one point which at that time did not show any type of arrhythmia. She feels well this morning. Physical Exam Physical Exam: Dressings are clean, dry, and intact. Calves are soft nontender. Neurovascular is intact. Toes are mobile. She has good dorsiflexion and plantarflexion of the right foot. Hemovac drainage was approximately 120 mL of the previous shift Results & Data Vital Signs (Past 12 Hours) Vital Signs Temp Pulse Resp BP Pulse Ox O2 Del Method O2 Flow Rate 05/27/22 22:00 36.7 C 100 H 18 143/74 H 93 Room Air 05/28/22 03:44 36.9 C 72 18 137/71 96 Room Air 05/27/22 21:44 36.6 C 97 H 18 109/60 95 Room Air 05/27/22 23:00 36.7 C 102 H 20 120/66 93 Room Air 05/27/22 21:00 36.7 C 88 18 137/70 98 Nasal Cannula 3 05/27/22 19:45 72 17 122/62 98 Nasal Cannula 2 05/27/22 19:30 70 15 124/65 97 Nasal Cannula 2 05/27/22 19:15 69 18 120/61 96 Nasal Cannula 2 Laboratory Results Laboratory Results POC Glucose 156 mg/dl (70-99) H 05/27/22 21:22 SARS-CoV-2, RNA, NAAT NEGATIVE (NEGATIVE) 05/27/22 11:50 Impressions Knee X-Ray 05/27/22 18:05 TWO VIEWS RIGHT KNEE CLINICAL HISTORY: Postoperative examination. FINDINGS: AP and crosstable lateral portable views of the right knee are obtained. A right knee arthroplasty is in near anatomic alignment. There has been undersurface remodeling of the patella. No acute fracture is seen. There are expected postoperative changes around the knee including skin clips, a surgical drain, soft tissue edema, and subcutaneous gas. IMPRESSION: Expected postoperative changes status post right knee arthroplasty. No acute fracture is seen. ACT 112: Negative or not required by law. Electronically signed by: Joseph Mccarthy M.D. 05/27/2022 6:20 PM
[2022-05-28 08:09] LABS: Hematocrit (blood only) 37.4 % (37.0-47.0); Mean Corpuscular Hemoglobin 31.4 pg (25.0-34.0); Mean Corpuscular Hgb Conc 34.8 g/dL (32.0-36.0); Mean Corpuscular Volume 90.3 fL (80.0-100.0); Mean Platelet Volume 8.6 fL (9.4-12.4); Platelet Count 249 K/uL (130-400); RDW Coefficient of Variation 12.7 % (11.5-14.5); RDW Standard Deviation 41.6 fL (36.4-46.3); Red Blood Count 4.14 M/uL (4.20-5.40); White Blood Count 10.29 K/ul (4.8-10.8)
[2022-05-28 08:26] LABS: BUN Creatinine Ratio 29.6 (10-20); Calcium 9.5 mg/dl (8.6-10.3); Creatinine Clr Calc Pharmacy 120.5 ml/min; Est GFR (African American) 116.4 ml/min; Est GFR (Non-African American) 100.4 ml/min; Potassium 3.7 mmol/L (3.5-5.1)
[2022-05-28] MEDS ORDERED: APIXABAN 2.5 MG TAB PO SCH (09:00)
[2022-05-28] MEDS ORDERED: Heparin IV Adult Wt-Based Low-Dose *NO* Bolus Protocol IV ONE (09:00)
[2022-05-28] MEDS ORDERED: HEPARIN SODIUM/DEXTROSE 25,000 UNITS/500 ML BAG IV SCH (09:00)
[2022-05-28] MEDS: amLODIPine BESYLATE 5 MG TAB PO SCH (09:07)
[2022-05-28] MEDS: POTASSIUM CHLORIDE CRTAB 20 MEQ TABCR PO SCH ×3 (09:08→20:12)
[2022-05-28] MEDS: MAGNESIUM OXIDE 400 MG TAB PO SCH ×2 (09:08→20:13)
[2022-05-28] MEDS: CHOLECALCIFEROL 1,000 UNITS 25 MCG TAB PO SCH (09:08)
[2022-05-28] MEDS: CYANOCOBALAMIN (B-12) 500 MCG TABLET PO SCH (09:08)
[2022-05-28] MEDS: ASCORBIC ACID 500 MG TAB PO SCH (09:08)
[2022-05-28] MEDS: LOSARTAN POTASSIUM 50 MG TAB PO SCH (09:09)
[2022-05-28] MEDS ORDERED: APIXABAN 2.5 MG TAB PO ONE (09:31)
[2022-05-28] MEDS: oxyCODONE HCL IR 5 MG TAB (IMMEDIATE RELEASE) PO PRN ×3 (13:13→23:44)
--- NOTE | 2022-05-28 17:17 | Cardiology Consultation ---
Date of Consultation May 28, 2022 Assessment & Plan (1) Atrial flutter: (2) Hypertension: Plan ASSESSMENT/PLAN: 1. Atrial flutter: Discussed the diagnosis. Heart rate is well controlled. Outpatient palpitations more recently likely related to atrial flutter but no definite correlation. Recommend anticoagulation therapy and after 4 weeks of therapeutic anticoagulation, would consider cardioversion versus ablation. Other treatment options such as rate control and rhythm control with antiarrhythmic therapy discussed. In the outpatient setting, will review ECGs with electrophysiology for consideration of possible ablation. There is no urgency to restore sinus rhythm and because onset is not known, would require transesophageal echo if done electively. Continue beta-michelle. 2. Hypertension: Blood pressure has been well controlled. No changes made. 3. Disposition: We will arrange for follow-up in the cardiology office in [place]. Echo has been ordered given atrial flutter and is currently pending. Can be discharged home from a cardiac perspective when orthopedics and hospitalist consult deem appropriate with her other medical issues. She can be discharged prior to her echo if not yet done as the echo can be arranged in the outpatient setting. There is no urgency for echo. Patient care communicated with hospitalist service and message sent to orthopedics. Highly complex medical issues for which ablation was discussed and considered in the future as an outpatient. Thank you for allowing me to participate in the care of your patient. Please call for any other questions or concerns. Sincerely, Ravinder You M.D. History of Present Illness Reason for Consultation: New onset A-fib/flutter Requesting Physician: Jag Rutherford PA-C. Attending Physician: Tariq Eli MD History of Present Illness Mrs. Ca is a very pleasant 62-year-old female with a history significant for hypertension, type 2 diabetes, and obstructive sleep apnea previously on CPAP, but sleep apnea improved following gastric bypass surgery. She was hospitalized on 05/27/2022 for elective right total knee replacement. Intraoperatively, anesthesia notes document that through the entire operation, there was irregularly irregular rhythm noted on telemetry but difficult to determine if A-fib versus atrial flutter versus frequent PACs. Following the procedure, in the PACU, ECG demonstrated A-fib/flutter. She recalls having palpitations in the past and underwent Holter monitor as an outpatient with Dr. Marie a few years ago. Recently, within the past month or so, she woke up with palpitations and has noted palpitations while working. She checks her blood pressure and her heart rate is typically reported in the 60s to 70s and her blood pressure cuff. She has had decreased stamina at work for the past 1 to 2 months and occasionally has dyspnea on exertion. She denies chest pain, syncope, near syncope, melena, hematochezia, or hematuria. She has chronic but stable ankle swelling. She remains free from palpitations following surgery. On telemetry, her heart rate has been well controlled. Review of systems: As above. Review of systems otherwise negative/unremarkable. Family history: Father had CAD diagnosed at 45 and had CO, PCI, CABG, and ICD. Brother had CAD and PCI. Social history: She quit smoking in approximately 2009. Occasional alcohol. No drugs. Lives at home with her , Chavez. No biologic children. Has a stepson. 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 Her was present at the bedside. Allergies Allergy/AdvReac Type Severity Reaction Status Date / Time celecoxib [From Celebrex] Allergy Severe shortness Verified 05/27/22 12:10 of breath, edema diclofenac Allergy Severe shortness Verified 05/27/22 12:10 of breath; edema aspirin Allergy Intermediate "if I take Verified 05/27/22 12:10 too much aspirin my nose will bleed" butalbital [From Fiorinal] Allergy Intermediate Hives Verified 05/27/22 12:10 latex Allergy Intermediate dermatitis Verified 05/27/22 12:10 with latex gloves meloxicam Allergy Intermediate Tachycardia Verified 05/27/22 12:10 gabapentin Allergy Mild rash and Verified 05/27/22 12:10 brain fog sulfamethoxazole Allergy Unknown Unknown Verified 05/27/22 12:10 [From Bactrim] trimethoprim [From Bactrim] Allergy Unknown Unknown Verified 05/27/22 12:10 venlafaxine [From Effexor] Allergy Unknown Unknown Verified 05/27/22 12:10 fexofenadine [From Margarita] AdvReac Intermediate "made me Verified 05/27/22 12:10 real tired" Home Medications Medication Instructions Recorded Confirmed Type blood sugar diagnostic (Re[employer]ion [employer]icsTouch #10 ea 07/26/18 04/30/22 History Ultra Blue Test Strip) coenzyme Q10 100 mg capsule 100 mg PO QPM 07/26/18 05/27/22 History cyanocobalamin (vitamin B-12) 1,500 mcg PO QAM #30 tabs 07/26/18 05/27/22 History 1,500 mcg tablet,extended release lancets (OneTouch UltraSoft #50 ea 07/26/18 04/30/22 History Lancets) loratadine 10 mg tablet 10 mg PO QPM 07/26/18 05/27/22 History magnesium 250 mg tablet 250 mg PO BID 07/26/18 05/27/22 History nystatin 100,000 unit/gram topical 1 appln topical BID PRN Rash #1 g 07/26/18 05/27/22 History cream omega-3 acid ethyl esters 1 gram 1 cap PO QAM 07/26/18 05/27/22 History capsule vitamin B complex (Super B-50 1 cap PO QAM 07/26/18 05/27/22 History Complex capsule) biotin 10 mg tablet 10 mg PO QAM 12/18/18 05/27/22 History glucosamine-chondroitin 250 mg-200 1 tab PO QAM 04/22/20 05/27/22 History mg tablet (Osteo Bi-Flex) turmeric 400 mg capsule 400 mg PO BID 04/22/20 05/27/22 History triamcinolone acetonide 0.1 % 1 applic topical BID PRN 11/22/20 05/27/22 Rx topical cream dermatitis #80 grams potassium chloride 20 mEq 20 meq PO TID #270 tabs 03/28/21 05/27/22 Rx tablet,extended release ketoconazole 2 % shampoo 1 applic topical .COMPLEX PRN 09/02/21 05/27/22 Rx scalp irritation #120 mL ondansetron HCl 8 mg tablet 8 mg PO Q8H PRN nausea and 10/17/21 05/27/22 Rx vomiting #20 tabs tizanidine 4 mg capsule 4 mg PO .QHS PRN muscle spasticity 10/17/21 05/27/22 Rx #20 caps cholecalciferol (vitamin D3) 1,250 50,000 unit PO WEEKLY #14 caps 03/26/22 05/27/22 Rx mcg (50,000 unit) capsule amlodipine 2.5 mg tablet 2.5 mg PO QAM #30 tabs 04/16/22 05/27/22 Rx ascorbic acid (vitamin C) 500 mg 500 mg PO QAM 05/04/22 05/27/22 History chewable tablet (Vitamin C) atenolol 50 mg-chlorthalidone 25 1 tab PO QPM 05/04/22 05/27/22 History mg tablet cholecalciferol (vitamin D3) 50 2,000 unit PO QAM 05/04/22 05/27/22 History mcg (2,000 unit) capsule duloxetine 30 mg capsule,delayed 30 mg PO QPM 05/04/22 05/27/22 History release losartan 100 mg tablet 100 mg PO QAM 05/04/22 05/27/22 History Patient History Medical History Adjustment reaction Atrial flutter Benign essential hypertension Cardiac murmur "No murmur" per PCP preop evaluation appt 04/30/22 ([facility]) Chronic anemia Chronic kidney disease Controlled diabetes mellitus with chronic kidney disease diet controlled Depression Fatty liver Hyperlipidemia Increased intraocular pressure Macromastia Moderate obstructive sleep apnea Previous CPAP use, no issues/no device since gastric bypass, no formal retest Obesity Osteoarthritis Surgical History H/O gastric bypass H/O wrist surgery bilateral carpal tunnel repair H/O: hysterectomy History of appendectomy History of breast biopsy right breast--benign History of colonoscopy History of laparoscopy excision gynecologic lesions History of left hip replacement Dr. Hoffman 12/12/21 History of tooth extraction S/P thyroid biopsy benign nodule S/P ureteral stent placement 07/01/20 - Dr. Celestina WILSON Status post laser lithotripsy of ureteral calculus 07/01/20 - Dr. Oscar [facility] Family History Mother Coronary heart disease Dyslipidemia Renal cancer Thyroid disorder Family history of reaction to anesthesia nausea/vomiting Father Diabetes AAA (abdominal aortic aneurysm) Dyslipidemia Heart disease Myocardial infarction Lung cancer Aunt Breast cancer Denies family history of Ovarian cancer Prostate cancer Colorectal cancer Social History Smoking Status: Never smoker Smoking End Date: Quit 13yrs ago; Second Hand Exposure: No; Do You Dip or Chew Tobacco: No; Tobacco Cessation Education Requested by Patient: No Hx Alcohol Use: No Hx Substance Use: No Preferred Language: Divehi Communication Ability: Effective Visual Impairment: No Limitations Hearing Ability: Normal Family Medicine Resident Required: No Beliefs That Will Affect Care: None marital status: Current Living Situation: Spouse Current Living Situation Comment: in a trailer current occupational status: employed current occupation: [employer] Other Information That Helps Us Care for You: No Feels Safe at Home: Yes Safety Concerns: Feels Safe At This Time Childhood Exposure to Second-Hand Smoke: Yes caffeine: Yes during the past year weight has: remained stable Dental Care, Regularly: No Physical Activity Frequency: Daily Seatbelt Use: always Sunscreen Use: Yes Assistive Devices: Cane, Raised Toilet Seat and Walker Physical Exam Physical Exam: Gen.: No acute distress. Alert and oriented. HEENT: Anicteric sclera. Neck: No JVD. No bruits. Normal carotid upstrokes bilaterally. Cardiac: No ventricular heave. Irregularly irregular. Normal heart rate. Normal S1-S2. No murmurs, rubs, or gallops. Pulmonary: Clear to auscultation bilaterally without wheezes, rales, or rhonchi. Abdomen: Soft, nontender, nondistended, with normoactive bowel sounds. No bruits noted. Extremities: 2+ radial pulses bilaterally. 2+ posterior tibialis pulses bilaterally. Trace right lower extremity edema. No cyanosis. Psychiatric: Affect appears appropriate. Results & Data Vital Signs (Past 12 Hours) Vital Signs Temp Pulse Pulse Resp BP Pulse Ox O2 Del Method 05/28/22 15:00 74 05/28/22 14:20 36.7 C 83 18 100/61 95 Room Air 05/28/22 11:18 36.4 C L 67 18 117/70 96 Room Air 05/28/22 08:29 79 05/28/22 07:45 36.4 C L 73 18 124/82 96 Room Air Laboratory Results Laboratory Results - last 24 hr 05/27/22 05/27/22 05/28/22 18:05 21:22 07:43 WBC RBC Hgb Hct MCV MCH MCHC RDW Std Deviation RDW Coeff of Ebony Plt Count MPV Sodium Potassium Chloride Carbon Dioxide Anion Gap BUN Creatinine Est Cr Clr Drug Dosing Est GFR ( Amer) Est GFR (Non-Af Amer) BUN/Creatinine Ratio Glucose POC Glucose 175 H 156 H 173 H Calcium 05/28/22 05/28/22 05/28/22 07:47 07:47 11:36 WBC 10.29 RBC 4.14 L Hgb 13.0 Hct 37.4 MCV 90.3 MCH 31.4 MCHC 34.8 RDW Std Deviation 41.6 RDW Coeff of Ebony 12.7 Plt Count 249 MPV 8.6 L Sodium 137 Potassium 3.7 Chloride 101 Carbon Dioxide 26 Anion Gap 10 BUN 16 Creatinine 0.54 L Est Cr Clr Drug Dosing 120.5 Est GFR ( Amer) 116.4 Est GFR (Non-Af Amer) 100.4 BUN/Creatinine Ratio 29.6 H Glucose 168 H POC Glucose 121 H Calcium 9.5 05/28/22 16:36 WBC RBC Hgb Hct MCV MCH MCHC RDW Std Deviation RDW Coeff of Ebony Plt Count MPV Sodium Potassium Chloride Carbon Dioxide Anion Gap BUN Creatinine Est Cr Clr Drug Dosing Est GFR ( Amer) Est GFR (Non-Af Amer) BUN/Creatinine Ratio Glucose POC Glucose 125 H Calcium Diagnostic Findings Telemetry personally reviewed: A-fib/flutter with normal heart rate. ECGs personally reviewed: ECG 05/27/2022 at 1808: Atrial flutter [address] abnormality. ECG 05/27/2022 at 2332: Atrial flutter 100 bpm. Suspect limb lead reversal. Nonspecific ST/T wave abnormality. Anesthesia note reviewed. Orthopedic progress note from today reviewed. Medications Administered Current Inpatient Medications Acetaminophen (Acetaminophen 500 Mg Tab) 1,000 mg PO Q8H PRN PRN Reason: Headache or Pain Stop: 06/26/22 21:43 Last Admin: 05/28/22 05:30 Dose: 1,000 mg Amlodipine Besylate (Amlodipine Besylate 5 Mg Tab) [facility] [place] Stop: 06/27/22 08:59 Last Admin: 05/28/22 09:07 Dose: 2.5 mg Apixaban (Apixaban 5 Mg Tablet) 5 mg PO BID COUNTS INCLUDE 234 BEDS AT [facility] Stop: 06/27/22 20:59 Ascorbic Acid (Ascorbic Acid 500 Mg Tab) [facility] [place] Stop: 06/27/22 08:59 Last Admin: 05/28/22 09:08 Dose: 500 mg Atenolol (Atenolol 50 Mg Tablet) 50 mg PO QPM EZEQUIEL Stop: 06/26/22 20:59 Last Admin: 05/27/22 22:23 Dose: 50 mg Chlorthalidone (Chlorthalidone 25 Mg Tab) 25 mg PO QPM EZEQUIEL Stop: 06/26/22 20:59 Last Admin: 05/27/22 22:23 Dose: 25 mg Cyanocobalamin (Cyanocobalamin (B-12) 500 Mcg Tablet) 1,500 mcg PO QAM EZEQUIEL Stop: 06/27/22 08:59 Last Admin: 05/28/22 09:08 Dose: 1,500 mcg Duloxetine HCl (Duloxetine Hcl 30 Mg Cap) 30 mg PO QPM EZEQUIEL Stop: 06/26/22 20:59 Last Admin: 05/27/22 22:22 Dose: 30 mg Hydromorphone HCl (Hydromorphone Inj 0.5 Mg/0.5 Ml Syr) 0.5 mg IV Q4H PRN PRN Reason: Pain Stop: 06/11/22 09:47 Loratadine (Loratadine 10 Mg Tab) 10 mg PO QPM EZEQUIEL Stop: 06/26/22 20:59 Last Admin: 05/27/22 22:23 Dose: 10 mg Losartan Potassium (Losartan Potassium 50 Mg Tab) 100 mg PO QAM COUNTS INCLUDE 234 BEDS AT THE [facility] Stop: 06/27/22 08:59 Last Admin: 05/28/22 09:09 Dose: 100 mg Magnesium Oxide (Magnesium Oxide 400 Mg Tab) 400 mg PO BID EZEQUIEL Stop: 06/26/22 20:59 Last Admin: 05/28/22 09:08 Dose: 400 mg Oxycodone HCl (Oxycodone Hcl Ir 5 Mg Tab (Immediate Release)) 5 - 10 mg PO Q4H PRN PRN Reason: Pain Stop: 06/11/22 09:47 Last Admin: 05/28/22 13:13 Dose: 10 mg Potassium Chloride (Potassium Chloride Crtab 20 Meq Tabcr) 20 meq PO TID EZEQUIEL Stop: 06/26/22 20:59 Last Admin: 05/28/22 13:14 Dose: 20 meq Tizanidine HCl (Tizanidine Hcl 4 Mg Tablet) 4 mg PO HS PRN PRN Reason: muscle spasticity Stop: 06/26/22 20:11 Vitamin D (Cholecalciferol 1,000 Units 25 Mcg Tab) 2,000 units PO QAM EZEQUIEL Stop: 06/27/22 08:59 Last Admin: 05/28/22 09:08 Dose: 2,000 units PG Care Time/CCT Total # of Minutes Spent Total Time Spent with Patient: Total time spent is greater than 50% in coordination of care (as documented) at patient's floor/unit and/or counseling patient: Coding Level of Care Code 98246 INT INP/OBS CARE 3/75MIN Diagnoses Atrial flutter I48.92 Hypertension I10
--- NOTE | 2022-05-28 17:39 | Hospitalist Progress Note ---
Date of Service May 28, 2022 Assessment & Plan (1) Atrial flutter: Plan: Admitted to the hospital for right TKA and noted to have atrial flutter intraoperatively and postoperatively which is new in onset for her She is asymptomatic and rates are controlled Appreciate cardiology consultation Echocardiogram is pending Started Eliquis 5 Mg p.o. twice daily for anticoagulation Cardiology to consider cardioversion versus ablation after 4 weeks of anticoagulation Follow-up as an outpatient Continue to monitor on telemetry Continue atenolol (2) Primary osteoarthritis of right knee: Plan: Status post right TKA Doing well from orthopedic standpoint-plan is to go home with home health Continue pain control, bowel regimen PT/OT (3) Benign essential hypertension: Plan: Blood pressures are controlled Continue home amlodipine, atenolol, and losartan Would consider either discontinuing chlorthalidone due to ongoing need for signi ficant potassium and magnesium replacement or perhaps could try adding spironolactone as an outpatient Will defer to PCP for further management in the long-term (4) Hypokalemia: Plan: As noted above Continue home 3 times daily potassium supplementation now along with magnesium supplementation Consider discontinuation of chlorthalidone Plan Neuropathy-continue duloxetine Disposition-continued stay overnight, awaiting for case management to arrange home health Hospital service will continue to follow Admission and Anticipated Discharge Date Admission Date: May 27, 2022 Subjective Patient denies any heart palpitations or chest pains, no shortness of breath. Pain is controlled in the knee. She had new onset atrial flutter noted during her knee surgery yesterday. I discussed her care with cardiology and orthopedics Atrial flutter with rates in the 70s to 80s on telemetry today Physical Exam Constitutional: WD/WN, vitals as above Respiratory: normal respiratory effort, lungs clear to auscultation Cardiovascular: Rate/Rhythm: regular rate and + irregularly irregular Heart Sounds: no murmur Extremities: no edema Psychiatric: A+Ox3, euthymic affect Results & Data Results & Data Vital Signs (Past 12 Hours) Vital Signs Temp Pulse Pulse Resp BP Pulse Ox O2 Del Method 05/28/22 15:00 74 05/28/22 14:20 36.7 C 83 18 100/61 95 Room Air 05/28/22 11:18 36.4 C L 67 18 117/70 96 Room Air 05/28/22 08:29 79 05/28/22 07:45 36.4 C L 73 18 124/82 96 Room Air Laboratory Results CBC, BMP reviewed PG Care Time/CCT Total # of Minutes Spent Total Time Spent with Patient: Total time spent is greater than 50% in coordination of care (as documented) at patient's floor/unit and/or counseling patient: Coding Level of Care Code 37753 SUB INP/OBS CARE 2/35MIN Diagnoses Atrial flutter I48.92 Primary osteoarthritis of right knee M17.11 Benign essential hypertension I10 Hypokalemia E87.6
[2022-05-28] MEDS: ATENOLOL 50 MG TABLET PO SCH (20:12)
[2022-05-28] MEDS: CHLORTHALIDONE 25 MG TAB PO SCH (20:12)
[2022-05-28] MEDS: LORATADINE 10 MG TAB PO SCH (20:13)
[2022-05-28] MEDS: APIXABAN 5 MG TABLET PO SCH (20:13)
[2022-05-28] MEDS: DULoxetine HCL 30 MG CAP PO SCH (20:13)
[2022-05-28] MEDS: DOCUSATE SODIUM 100 MG CAP PO SCH (20:16)
[2022-05-29] MEDS: HYDROmorphone INJ 0.5 MG/0.5 ML SYR IV PRN ×4 (02:25→20:37)
[2022-05-29] MEDS: oxyCODONE HCL IR 5 MG TAB (IMMEDIATE RELEASE) PO PRN ×5 (06:05→22:03)
[2022-05-29 06:06] LABS: Basophils # (auto) 0.02 K/uL (0-0.2); Basophils % (auto) 0.2 %; Eosinophils # (auto) 0.08 K/uL (0-0.50); Eosinophils % (auto) 0.8 %; Hematocrit (blood only) 35.7 % (37.0-47.0); Hemoglobin 12.3 g/dl (12.0-16.0); Immature Granulocytes # (auto) 0.04 K/uL (0.01-0.20); Immature Granulocytes % (auto) 0.4 %; Lymphocytes # (auto) 3.71 K/uL (1.2-3.4); Mean Corpuscular Hemoglobin 31.5 pg (25.0-34.0); Mean Corpuscular Hgb Conc 34.5 g/dL (32.0-36.0); Mean Corpuscular Volume 91.3 fL (80.0-100.0); Mean Platelet Volume 8.8 fL (9.4-12.4); Monocytes % (auto) 7.2 %; Neutrophils # (auto) 5.22 K/uL (1.40-6.50); Neutrophils % (auto) 53.4 %; Platelet Count 242 K/uL (130-400); RDW Standard Deviation 42.5 fL (36.4-46.3); Red Blood Count 3.91 M/uL (4.20-5.40); White Blood Count 9.77 K/ul (4.8-10.8)
[2022-05-29 06:19] LABS: BUN Creatinine Ratio 38.6 (10-20); Calcium 9.1 mg/dl (8.6-10.3); Creatinine Clr Calc Pharmacy 114.2 ml/min; Est GFR (African American) 114.3 ml/min; Est GFR (Non-African American) 98.7 ml/min; Magnesium 1.7 mg/dl (1.7-2.4); Potassium 3.5 mmol/L (3.5-5.1)
[2022-05-29] MEDS: CYANOCOBALAMIN (B-12) 500 MCG TABLET PO SCH (08:10)
[2022-05-29] MEDS: amLODIPine BESYLATE 5 MG TAB PO SCH (08:17)
[2022-05-29] MEDS: MAGNESIUM OXIDE 400 MG TAB PO SCH ×2 (08:17→20:37)
[2022-05-29] MEDS: POTASSIUM CHLORIDE CRTAB 20 MEQ TABCR PO SCH ×3 (08:17→20:37)
[2022-05-29] MEDS: APIXABAN 5 MG TABLET PO SCH ×2 (08:17→20:37)
[2022-05-29] MEDS: CHOLECALCIFEROL 1,000 UNITS 25 MCG TAB PO SCH (08:18)
[2022-05-29] MEDS: ASCORBIC ACID 500 MG TAB PO SCH (08:19)
[2022-05-29] MEDS: DOCUSATE SODIUM 100 MG CAP PO SCH ×2 (08:19→20:36)
[2022-05-29] MEDS: LOSARTAN POTASSIUM 50 MG TAB PO SCH (08:19)
--- NOTE | 2022-05-29 11:34 | Orthopedic Progress Note ---
Date of Service May 29, 2022 Assessment & Plan (1) Primary osteoarthritis of right knee: Plan: Postop day 2 status post right total knee arthroplasty. PT/OT protocols. Weightbearing as tolerated. DVT prophylaxis-apixaban 5 mg p.o. twice daily, MICHAEL Dorado. Pain management-as written. Pain control at this time is not adequate. If patient is still using IV pain medications, we may need to keep her 1 more day and decide if a change is needed in her pain medication or if she could continue taking her pain medications regularly. Patient had discussed that she did not like taking different medications however we also discussed that she needed to do this in the short-term to ensure that she does well with her physical therapy. DC planning-patient is considering home health services at this time. Case management to see her this morning. Admission and Anticipated Discharge Date Admission Date: May 27, 2022 Subjective Postop day 2 Patient lying in bed. Upon entering the room she was noticeably uncomfortable. Patient states that she was having a lot of pain in the operative knee. She states that she had returned from an ultrasound of her heart a little bit ago. It sounds like she has not been taking her pain medications every 4 hours however she stated that she just had 2 oxycodone tablets at 10:00. She was still having a fair amount of pain. We discussed that she had IV Dilaudid ordered as well if her pain control was not adequate. We went over pain control expectations and how she should be taking her pain medications to ensure the best way to help control her pain. Patient with a history of NSAID allergy which cannot be used at this time. No other complaints at this time. Physical Exam Physical Exam: Dressings removed. Hemovac discontinued. Her knee has minimal swelling at this time. Isaias dressing is intact and functioning. Calves are soft and nontender. Neurovascular intact. Toes are mobile. Patient is able to do a straight leg raise on her own without difficulty. Drain site was covered with 4 x 4 gauze. Results & Data Vital Signs (Past 12 Hours) Vital Signs Temp Pulse Resp BP Pulse Ox O2 Del Method 05/29/22 11:16 36.9 C 43 L 19 152/82 H 96 Room Air 05/29/22 08:17 36.9 C 67 19 136/78 95 Room Air Laboratory Results 05/29/22 05/29/22 05/29/22 Range/Units 07:43 05:35 05:35 WBC 9.77 (4.8-10.8) K/ul RBC 3.91 L (4.20-5.40) M/uL Hgb 12.3 (12.0-16.0) g/dl Hct 35.7 L (37.0-47.0) % MCV 91.3 (80.0-100.0) fL MCH 31.5 (25.0-34.0) pg MCHC 34.5 (32.0-36.0) g/dL RDW Std Deviation 42.5 (36.4-46.3) fL RDW Coeff of Ebony 13.0 (11.5-14.5) % Plt Count 242 (130-400) K/uL MPV 8.8 L (9.4-12.4) fL Immature Gran % (Auto) 0.4 % Neut % (Auto) 53.4 % Lymph % (Auto) 38.0 % Kent % (Auto) 7.2 % Eos % (Auto) 0.8 % Baso % (Auto) 0.2 % Neut # (Auto) 5.22 (1.40-6.50) K/uL Lymph # (Auto) 3.71 H (1.2-3.4) K/uL Kent # (Auto) 0.70 H (0.11-0.59) K/uL Eos # (Auto) 0.08 (0-0.50) K/uL Baso # (Auto) 0.02 (0-0.2) K/uL Immature Gran # (Auto) 0.04 (0.01-0.20) K/uL Sodium 136 (136-145) mmol/L Potassium 3.5 (3.5-5.1) mmol/L Chloride 100 (98-107) mmol/L Carbon Dioxide 27 (21-32) mmol/L Anion Gap 9 (3-11) BUN 22 (6-23) mg/dl Creatinine 0.57 L (0.6-1.2) mg/dl Est Cr Clr Drug Dosing 114.2 ml/min Est GFR ( Amer) 114.3 ml/min Est GFR (Non-Af Amer) 98.7 ml/min BUN/Creatinine Ratio 38.6 H (10-20) Glucose 120 H (70-99(Fasting)) mg/dl POC Glucose 119 H (70-99) mg/dl Calcium 9.1 (8.6-10.3) mg/dl Magnesium 1.7 (1.7-2.4) mg/dl 05/28/22 05/28/22 Range/Units 20:45 16:36 WBC (4.8-10.8) K/ul RBC (4.20-5.40) M/uL Hgb (12.0-16.0) g/dl Hct (37.0-47.0) % MCV (80.0-100.0) fL MCH (25.0-34.0) pg MCHC (32.0-36.0) g/dL RDW Std Deviation (36.4-46.3) fL RDW Coeff of Ebony (11.5-14.5) % Plt Count (130-400) K/uL MPV (9.4-12.4) fL Immature Gran % (Auto) % Neut % (Auto) % Lymph % (Auto) % Kent % (Auto) % Eos % (Auto) % Baso % (Auto) % Neut # (Auto) (1.40-6.50) K/uL Lymph # (Auto) (1.2-3.4) K/uL Kent # (Auto) (0.11-0.59) K/uL Eos # (Auto) (0-0.50) K/uL Baso # (Auto) (0-0.2) K/uL Immature Gran # (Auto) (0.01-0.20) K/uL Sodium (136-145) mmol/L Potassium (3.5-5.1) mmol/L Chloride (98-107) mmol/L Carbon Dioxide (21-32) mmol/L Anion Gap (3-11) BUN (6-23) mg/dl Creatinine (0.6-1.2) mg/dl Est Cr Clr Drug Dosing ml/min Est GFR ( Amer) ml/min Est GFR (Non-Af Amer) ml/min BUN/Creatinine Ratio (10-20) Glucose (70-99(Fasting)) mg/dl POC Glucose 129 H 125 H (70-99) mg/dl Calcium (8.6-10.3) mg/dl Magnesium (1.7-2.4) mg/dl
--- NOTE | 2022-05-29 14:08 | XCELERA ---
[id number] \\[id number]
[2022-05-29] MEDS ORDERED: MAGNESIUM SULFATE / D5W 1 GM/100 ML BAG IV ONE (17:57)
[2022-05-29] MEDS ORDERED: POLYETHYLENE (MIRALAX) 17 GM PACK PO PRN (17:57)
--- NOTE | 2022-05-29 17:57 | Hospitalist Progress Note ---
Date of Service May 29, 2022 Assessment & Plan (1) Atrial flutter: Plan: Admitted to the hospital for right TKA and noted to have atrial flutter intraoperatively and postoperatively which is new in onset for her She is asymptomatic and rates are controlled Appreciate cardiology consultation Echocardiogram with preserved EF, mild Started Eliquis 5 Mg p.o. twice daily for anticoagulation-will send to pharmacy for discharge Cardiology to consider cardioversion versus ablation after 4 weeks of anticoagulation Follow-up as an outpatient Continue atenolol for rate control keep lytes replete-continue home po KCl and magnesium oxide, add 1 gram IV magnesium to keep above 2.0 (2) Primary osteoarthritis of right knee: Plan: Status post right TKA Had increased pain overnight--> Ortho keeping for improved pain control with oxycodone and IV dilaudid -plan is to go home with home health hopefully tomorrow -Continue pain control -increase bowel regimen-add on senna and Miralax PT/OT (3) Benign essential hypertension: Plan: Blood pressures are controlled Continue home amlodipine, atenolol, and losartan Would consider either discontinuing chlorthalidone due to ongoing need for significant potassium and magnesium replacement or perhaps could try adding spironolactone as an outpatient Will defer to PCP for further management in the long-term (4) Hypokalemia: Plan: Continue home 3 times daily potassium supplementation now along with magnesium supplementation Consider discontinuation of chlorthalidone Plan Neuropathy-continue duloxetine Disposition-continued stay overnight for pain control. Stable for discharge to home from Medical standpoint otherwise and Hospitalist service will SIGN OFF. Care discussed with Ortho PA and instructions placed on discharge. Case management to arrange home health Admission and Anticipated Discharge Date Admission Date: May 27, 2022 Subjective Had severe pain in knee overnight as she got behind on taking her pain meds. Staying again overnight as per Ortho for IV pain meds. No other concerns. No BM since admission Tele with atrial flutter/fib, rates 90s with some 130s Physical Exam Constitutional: WD/WN, vitals as above Respiratory: normal respiratory effort, lungs clear to auscultation Cardiovascular: Rate/Rhythm: regular rate and + irregularly irregular Heart Sounds: no murmur Extremities: no edema Psychiatric: A+Ox3, euthymic affect Results & Data Results & Data Vital Signs (Past 12 Hours) Vital Signs Temp Pulse Resp BP Pulse Ox O2 Del Method 05/29/22 15:48 36.9 C 76 20 118/71 96 Room Air 05/29/22 11:16 36.9 C 43 L 19 152/82 H 96 Room Air 05/29/22 08:17 36.9 C 67 19 136/78 95 Room Air Laboratory Results CBC, BMP, magnesium reviewed PG Care Time/CCT Total # of Minutes Spent Total Time Spent with Patient: Total time spent is greater than 50% in coordination of care (as documented) at patient's floor/unit and/or counseling patient: Coding Level of Care Code 91135 SUB INP/OBS CARE 2/35MIN Diagnoses Atrial flutter I48.92 Primary osteoarthritis of right knee M17.11 Benign essential hypertension I10 Hypokalemia E87.6
--- NOTE | 2022-05-29 19:06 | Electrocardiogram Report ---
Test Reason : Blood Pressure : / mmHG Vent. Rate : 068 BPM Atrial Rate : 300 BPM P-R Int : 000 ms QRS Dur : 102 ms QT Int : 448 ms P-R-T Axes : 000 044 -29 degrees QTc Int : 476 ms Atrial flutter vs coarse atrial fibrillation Nonspecific ST abnormality Abnormal ECG When compared with ECG of 24-SEP-2021 16:03, Atrial fibrillation / Atrial flutter has replaced Sinus rhythm Confirmed by Donald You ([id number]) on 05/29/2022 7:05:50 PM Referred By: Tariq Eli Confirmed By:Donald You
--- NOTE | 2022-05-29 19:19 | Electrocardiogram Report ---
Test Reason : Blood Pressure : / mmHG Vent. Rate : 100 BPM Atrial Rate : 322 BPM P-R Int : 000 ms QRS Dur : 090 ms QT Int : 376 ms P-R-T Axes : 000 145 -73 degrees QTc Int : 485 ms Atrial fibrillation /flutter Limb lead reversal Nonspecific ST and T wave abnormality Abnormal ECG When compared with ECG of 27-MAY-2022 18:08, Limb lead reversal is now present T wave inversion now evident in Anterolateral leads Confirmed by Donald You ([id number]) on 05/29/2022 7:19:29 PM Referred By: Tariq Eli Confirmed By:Donald You
[2022-05-29] MEDS: DULoxetine HCL 30 MG CAP PO SCH (20:35)
[2022-05-29] MEDS: CHLORTHALIDONE 25 MG TAB PO SCH (20:36)
[2022-05-29] MEDS: ATENOLOL 50 MG TABLET PO SCH (20:36)
[2022-05-29] MEDS: LORATADINE 10 MG TAB PO SCH (20:36)
[2022-05-29] MEDS: SENNA 8.6 MG TAB PO SCH (21:25)
[2022-05-30] MEDS: HYDROmorphone INJ 0.5 MG/0.5 ML SYR IV PRN ×3 (00:37→07:59)
[2022-05-30] MEDS: oxyCODONE HCL IR 5 MG TAB (IMMEDIATE RELEASE) PO PRN ×3 (02:12→10:03)
[2022-05-30] MEDS: amLODIPine BESYLATE 5 MG TAB PO SCH (08:01)
[2022-05-30] MEDS: ASCORBIC ACID 500 MG TAB PO SCH (08:01)
[2022-05-30] MEDS: MAGNESIUM OXIDE 400 MG TAB PO SCH (08:01)
[2022-05-30] MEDS: POTASSIUM CHLORIDE CRTAB 20 MEQ TABCR PO SCH (08:01)
[2022-05-30] MEDS: DOCUSATE SODIUM 100 MG CAP PO SCH (08:01)
[2022-05-30] MEDS: APIXABAN 5 MG TABLET PO SCH (08:01)
[2022-05-30] MEDS: CYANOCOBALAMIN (B-12) 500 MCG TABLET PO SCH (08:01)
[2022-05-30] MEDS: LOSARTAN POTASSIUM 50 MG TAB PO SCH (08:02)
[2022-05-30] MEDS: CHOLECALCIFEROL 1,000 UNITS 25 MCG TAB PO SCH (08:02)
--- NOTE | 2022-05-30 09:07 | Orthopedic Progress Note ---
Date of Service May 30, 2022 Assessment & Plan (1) Primary osteoarthritis of right knee: Plan: Postop day 3 status post right total knee arthroplasty. PT/OT protocols. Weightbearing as tolerated. DVT prophylaxis-apixaban 5 mg p.o. twice daily, Ave, MICHAEL magallon. Pain management-as written. Pain control much better today. DC planning-patient is planning for home health services. Physical therapy to work with her on going up and down steps today. Otherwise the patient is progressing well and will be discharged to home today. I spoke to Dr. Ndiaye yesterday afternoon and she feels the patient is stable from her standpoint for discharge. Admission and Anticipated Discharge Date Admission Date: May 27, 2022 Subjective Postop day 3 Patient sitting up in bed awake and alert. No complaints this morning. She states that she does have a general ache to the right knee but her severe pain has been controlled. She did quite well with her physical therapy yesterday. She states that she has been taking her medication as directed and this is helped greatly. She is hoping to go home today. Physical Exam Physical Exam: Isaias dressing has some very mild spots of dried blood on it but is otherwise benign. Calves are soft nontender. Neurovascular intact. Toes are mobile. Results & Data Vital Signs (Past 12 Hours) Vital Signs Temp Pulse Pulse Pulse Resp BP Pulse Ox 05/30/22 07:59 36.8 C 61 18 125/72 96 05/30/22 07:01 66 05/30/22 03:36 36.4 C L 75 18 110/65 92 05/29/22 23:30 36.5 C 69 18 103/65 95 O2 Del Method 05/30/22 07:59 Room Air 05/30/22 07:01 05/30/22 03:36 Room Air 05/29/22 23:30 Room Air Laboratory Results 05/30/22 05/29/22 05/29/22 Range/Units 07:49 20:32 16:45 POC Glucose 149 H 121 H 112 H (70-99) mg/dl 05/29/22 Range/Units 11:44 POC Glucose 85 (70-99) mg/dl
[2022-05-30] MEDS: SENNA 8.6 MG TAB PO SCH (09:12)
--- NOTE | 2022-05-30 20:10 | Billing Data ---
Date of Service May 30, 2022 Coding Level of Care Code 99058 IN/OBS CONSULT LVL 3,45M
--- NOTE | 2022-06-03 14:25 | Discharge Summary ---
Date of Service June 03, 2022 Admission HPI Per Admitting Provider 62yo female with PMHx signficant for HTN, anxiety, DM2 presents with ongoing right knee pain. She has pain interfering with her daily activity. She has failed conservative measures and would like to proceed with surgical intervention. Patient denies headaches, sweats, fevers, chills, double vision, blurred vision, cough, sore throat, dysphagia, chest pain, sob, wheezing, n/v/d/c, numbness, tingling, fatigue, urinary symptoms, mood disorders. ROS positive for right knee pain and stiffness. Admission Exam Per Admitting Provider Physical Exam Constitutional: well developed and well nourished; no acute distress Eyes: PERRL, conjunctivae normal, anicteric sclerae ENMT: external ear and nose normal, oropharynx normal Neck: trachea midline, no thyromegaly Respiratory: normal respiratory effort, lungs clear to auscultation Cardiovascular: RRR, no murmur, no edema Musculoskeletal: Right knee: Mild effusion. Medial joint line and patellar tenderness. Moderate crepitation. Painful ROM. ROM 0-120 degrees. Stable to valgus and varus stress Skin: no rashes, warm and dry Neurologic: patellar DTR's 2+ bilat, sensation intact Psychiatric: A+Ox3, euthymic affect Principal Diagnosis Right Knee Osteoarthritis Discharge Data Allergies Allergy/AdvReac Type Severity Reaction Status Date / Time celecoxib [From Celebrex] Allergy Severe shortness Verified 05/27/22 12:10 of breath, edema diclofenac Allergy Severe shortness Verified 05/27/22 12:10 of breath; edema aspirin Allergy Intermediate "if I take Verified 05/27/22 12:10 too much aspirin my nose will bleed" butalbital [From Fiorinal] Allergy Intermediate Hives Verified 05/27/22 12:10 latex Allergy Intermediate dermatitis Verified 05/27/22 12:10 with latex gloves meloxicam Allergy Intermediate Tachycardia Verified 05/27/22 12:10 gabapentin Allergy Mild rash and Verified 05/27/22 12:10 brain fog sulfamethoxazole Allergy Unknown Unknown Verified 05/27/22 12:10 [From Bactrim] trimethoprim [From Bactrim] Allergy Unknown Unknown Verified 05/27/22 12:10 venlafaxine [From Effexor] Allergy Unknown Unknown Verified 05/27/22 12:10 fexofenadine [From Margarita] AdvReac Intermediate "made me Verified 05/27/22 12:10 real tired" Consultations 05/25/22 11:46 Consult Hospitalist Routine 05/27/22 18:24 Consult Cardiology Routine Consult Cardiology Stat Procedures Performed Operation Date: 05/27/22 14:20 Actual Procedures p Right Total Knee Arthroplasty(Right) - Tariq Eli MD Ordered Studies 05/27/22 05:00 US - OR guided needle placemen Routine Hospital Course (1) Primary osteoarthritis of right knee: Patient was admitted on the above-noted date and had the above-noted surgery performed which she tolerated well. Postoperatively, the patient had developed atrial flutter. Consult was placed for hospitalist service as well as cardiology. Patient was transferred to [facility] for monitoring. On her first postoperative day, she was awake and alert. She had no complaints that morning and pain was controlled. She denies shortness of breath, chest pain, lightheadedness. She denies feeling like she was having any type of arrhythmia. Dressings were clean, dry, and intact. Calves were soft nontender. Neurovascular was intact. Toes were mobile. She had good dorsiflexion and plantarflexion of the right foot. Hemovac drainage was 120 mL from the previous shift. Hemoglobin was 13.0. Patient was seen by cardiology that morning and recommendations were for anticoagulation therapy for 4 weeks and then follow-up with consideration of cardioversion versus ablation. Patient has been started on Eliquis 5 mg p.o. twice daily. She was started on PT and OT protocols and continued on DVT prophylaxis and pain management. By her second postoperative day, the patient was noticeably uncomfortable and complaining of knee pain. She had return from an echocardiogram and after discussion was noted that she felt she may not have been taking her pain medications as directed. Outer dressing has been removed. Jame dressing was intact and functioning. Calves were soft and nontender. Neurovascular intact. Toes are mobile. Hemovac drain had been removed. It was felt that she needed at least another day of pain control and we discussed how to use the current medications that she had been prescribed. She was continued on her other protocols and was remaining stable. By her third postoperative day, she had better pain control. She was progressing well with physical therapy. She states that she has been taking her medication as directed. Physical exam had essentially not changed. She did have some slight scant drainage noted on the jame. Cardiology service made arrangements for patient's follow-up. Patient was continued remain medically stable as well as orthopedically stable and was felt she be discharged home. Total Time Total Time Spent Total Time Spent (In Minutes): 10 Discharge Plan Discharge Items Patient Disposition: Home - Home Health Services Reason For Visit: RIGHT KNEE OSTEOARTHRITIS Discharge Diagnosis: Right Knee Osteoarthritis Atrial flutter Activity: Per Instructions section Weightbearing: Right weightbearing Weightbearing Comment: as tolerated with walker Non-emergency contact: Primary Care Provider, Surgeon and Electronic Warfare Linguist Call non-emergency contact if: you have any medication questions, your pain is not controlled, your temperature is above 101.5, your wound has increased redness and your wound has increased drainage Follow-up/Referrals: Donald You MD [Physician] - (Please follow up within 2-3 weeks.) Joseph Marie MD [Primary Care Provider] - (Please follow up within 1-2 weeks.) Tariq Eli MD [Surgeon] - (Follow up with Dr Eli or his PA in 2 weeks from the day of surgery for your first post operative visit.) Diet: Carb Consistent or DM2 Addtl Attending Provider Instructions: ACTIVITY RECOMMENDATIONS: SELF CARE INSTRUCTIONS AFTER TOTAL KNEE REPLACEMENT A. You may need to continue a physical therapy program after discharge from the hospital. There are several options available to you. Your doctor will assist you in selecting the best one for you. 1. An out-patient facility 2 to 3 times a week for therapy or home therapy. 2. Continue working on all exercises taught to you in the hospital. Your goals should be to increase bending of your knee to 90 degrees and beyond and to fully straighten your knee. B. You may progress at your own pace from walking with a walker or crutches to a cane; then to no assistive devices. C. Make walking a part of your daily routine. Be up as much as comfortable with rest periods throughout the day. Rest with leg elevation is very important. Use the ice wrap frequently for the first 3-4 weeks. D. There are no restrictions on activities. You may ride in a car, shop, participate in tax preparer and all social activities. E. Wear the long elastic stockings (MICHAEL hose) 20 hours a day for 2 weeks after surgery. They can be removed several times a day for laundering and for a bath. F. You may shower, no tub baths until cleared by your doctor. SPECIAL CARE INSTRUCTIONS: VERY IMPORTANT TO READ AND REVIEW A. There are a few signs you need to watch for after you are home. [facility] if you notice any of the followin. Increased severe knee pain. Some pain is expected especially when you exercise. 2. Increased swelling in your leg or knee; pain or swelling of the calf muscle in either lower leg. 3. Any fluid drainage from the incision. 4. Shortness of breath or chest pain. B. Please call [facility] at if you have any concerns or questions about your operation or recovery. The doctor or his nurse will return your call promptly. C. You must take antibiotics before dental work, bladder, bowel or other surgery. Your doctor will provide you with a permanent care to carry describing this precaution. IMPORTANT: * REMEMBER TO TAKE APIXIBAN 5MG TWICE DAILY FOR 4 WEEKS UNLESS OTHERWISE DIRECTED. THIS IS YOUR BLOOD THINNER.YOUR GUARDIAN AD LITEM MAY WANT YOU TO TAKE IT FOR A LONGER PERIOD OF TIME. * CALL IF INCREASED PAIN, REDNESS, DRAINAGE OR FEVER GREATER THAT 101. * WEAR MICHAEL HOSE 20 HOURS PER DAY FOR 2 WEEKS. * JAME Dressing - This is a large suction dressing covering your incision. This will help pull any excess drainage from the wound and allow your incision to heal properly. You may shower with this if you can keep the unit outside of the shower. If any bleeding or leakage is noted please call your doctor's off ice. This will remain on your incision for 7 days and then should be removed. This can be done yourself or by the home nursing staff if applicable. The entire unit is disposable once removed. Once removed, keep incision clean and dry. If redness or drainage is noted, please call your surgeon. . FOLLOW UP VISIT: If appointment is not already scheduled: Please call [facility] to make a follow-up appointment for 2 weeks after your surgery at . Please call Dr. You's office (Cardiology) to schedule an appointment to discuss treatment for your heart arrhythmia. Addtl Tractor Operator Laser Leveling Provider Instructions: ATRIAL FLUTTER You were found to have an irregular heart rhythm called atrial flutter during this hospitalization. You were started on a blood thinner called Eliquis to prevent stroke. This blood thinner also helps prevent blood clots in the legs after your surgery. You will need to follow up with the Electronic Warfare Linguist in the next few weeks. Stand-Alone Forms: My [facility], Smoking Cessation Medications and DC Order Prescriptions: New Eliquis 5 mg Tablet 5 mg PO BID Qty: 60 0RF acetaminophen [Tylenol Extra Strength] 500 mg Tablet 1,000 mg PO Q8H PRN (Reason: fever or pain) 14 Days Qty: 84 0RF polyethylene glycol 3350 [Miralax] 17 gram powder in packet 17 g PO DAILY PRN (Reason: constipation) Qty: 5 0RF oxycodone 5 mg tablet 5 mg PO Q4H MDD 6 PRN (Reason: pain) Qty: 30 0RF Continued potassium chloride 20 mEq tablet extended release 20 meq PO TID Qty: 270 3RF cholecalciferol (vitamin D3) 1,250 mcg (50,000 unit) capsule 50,000 unit PO WEEKLY Qty: 14 3RF Patient Comments: takes on sundays triamcinolone acetonide 0.1 % cream 1 applic topical BID PRN (Reason: dermatitis) Qty: 80 3RF ondansetron HCl 8 mg tablet 8 mg PO Q8H PRN (Reason: nausea and vomiting) Qty: 20 2RF ketoconazole 2 % shampoo 1 applic topical .COMPLEX PRN (Reason: scalp irritation) Qty: 120 11RF Rx Instructions: 1 applic topical apply to scalp PRN; loratadine 10 mg tablet 10 mg PO QPM coenzyme Q10 100 mg capsule 100 mg PO QPM omega-3 acid ethyl esters 1 gram capsule 1 cap PO QAM magnesium 250 mg tablet 250 mg PO BID nystatin 100,000 unit/gram cream 1 appln topical BID PRN (Reason: Rash) Qty: 1 (DME) lancets [OneTouch UltraSoft Lancets] misc See Dose Instructions .ROUTE .MEDSUPPLY Qty: 50 Rx Instructions: check sugars 4 times a day (DME) OneTouch Ultra Blue Test Strip strip See Dose Instructions .ROUTE .MEDSUPPLY Qty: 10 Rx Instructions: check sugars 4 times a day vitamin B complex [Super B-50 Complex] capsule 1 cap PO QAM cyanocobalamin (vitamin B-12) 1,500 mcg tablet extended release 1,500 mcg PO QAM Qty: 30 biotin 10 mg tablet 10 mg PO QAM glucosamine-chondroitin [Osteo Bi-Flex] 250-200 mg tablet 1 tab PO QAM turmeric 400 mg capsule 400 mg PO BID tizanidine 4 mg capsule 4 mg PO .QHS PRN (Reason: muscle spasticity) Qty: 20 2RF amlodipine 2.5 mg tablet 2.5 mg PO QAM Qty: 30 11RF Rx Instructions: for blood pressure ascorbic acid (vitamin C) [Vitamin C] 500 mg Tablet,Chewable 500 mg PO QAM atenolol-chlorthalidone 50-25 mg tablet 1 tab PO QPM Rx Instructions: for blood pressure losartan 100 mg tablet 100 mg PO QAM Rx Instructions: for blood pressure and diabetic kidney protection duloxetine 30 mg capsule,delayed release(DR/EC) 30 mg PO QPM Rx Instructions: with supper for mood and pain cholecalciferol (vitamin D3) 50 mcg (2,000 unit) capsule 2,000 unit PO QAM Admission Data Admit Date/Time: 05/27/22 18:05 Attending Provider: Myesha Sesay Admit Provider: Tariq Eli Primary Care Provider: Joseph Marie Other Providers: Donald You ; Jason Kaiser Natalie B. ; [place] ; Tariq Eli Other Interventions: Discharge Summary Assessment (RN) Last Done: 05/30/22 11:20
== END 2022-05-30 12:27 | disposition home health service (06) ==
LOC: ASU 11:22 → 2W 11:22 → SUATTDRO 18:05
DX: Z87.891 Personal history of nicotine dependence; Z88.2 Allergy status to sulfonamides; I48.91 Unspecified atrial fibrillation; I48.92 Unspecified atrial flutter; Z98.84 Bariatric surgery status; M17.12 Unilateral primary osteoarthritis, left knee; S83.241A Other tear of medial meniscus, current injury, right knee, initial encounter; X58.XXXA Exposure to other specified factors, initial encounter; Z79.899 Other long term (current) drug therapy; E87.6 Hypokalemia; I10 Essential (primary) hypertension; Z88.6 Allergy status to analgesic agent; Z91.040 Latex allergy status; Z88.8 Allergy status to other drugs, medicaments and biological substances